=== PATIENT | male | born 1970 | race Caucasian/White ===

== ENCOUNTER 2016-08-12 13:34 | Emergency (ER) ==
[2016-08-12 13:44] VITALS: BP 136/90; TEMP 98.9; BMI 33.0
--- NOTE | 2016-08-12 15:10 | ED.PDOC ---
General ED Provider: Dr. LISA DELATORRE JR Chief Complaint: Tooth Problem Stated Complaint: Dental pain left upper. Teeth broken, carious. Made dental appt, but is for the end of the month. States pain is "unbearable" now.[End] 98.9 94 20 92% 136/90 9/10 Teeth broke off within the last year. Yesterday swelling started to left side of face. Swollen left side of face, redness and tenderness[End] left lateral upper incisor monocuspid and bicuspid eroded fractured oozing Time Seen by Physician: 15:08 Mode of Arrival: Walk-In Information Source: Patient Exam Limitations: No limitations Nursing and Triage Documentation Reviewed and Agree: No Review of Systems - Review Of Systems Constitutional: Reports: No symptoms Eyes: Reports: No symptoms Ears, Nose, Mouth, Throat: Reports: Mouth pain Respiratory: Reports: No symptoms Cardiac: Reports: No symptoms GI: Reports: No symptoms : Reports: No symptoms Musculoskeletal: Reports: No symptoms Skin: Reports: No symptoms Neurological: Reports: No symptoms Endocrine: Reports: No symptoms Hematologic/Lymphatic: Reports: No symptoms All Other Systems: Other Past Medical History - Past Medical History Endocrine: Reports: None Cardiovascular: Reports: Hypertension Respiratory: Reports: Asthma Hematological: Reports: None Gastrointestinal: Reports: None Genitourinary: Reports: None Neuro/Psych: Reports: Migraine Musculoskeletal: Reports: None Cancer: Reports: None - Surgical History General Surgical History: Reports: Other (fore skin), Unknown (FX PENIS ) - Family History Family History: Reports: Unknown - Social History Smoking Status: Current every day smoker, Heavy tobacco smoker Hx Substance Use: No Alcohol Screening: Occasionally Physical Exam - Physical Exam Appearance: Well-appearing Pain Distress: Moderate Eyes: NIKOLAI, EOMI, Conjunctiva clear ENT: Ears normal, Nose normal, Erythema (dental) Neck: Supple (no lad) Respiratory: Airway patent, Breath sounds clear, Breath sounds equal, Respirations nonlabored Cardiovascular: RRR, Pulses normal, No rub, No murmur GI/: Soft, Nontender, No masses, Bowel sounds normal, No Organomegaly Musculoskeletal: Normal strength, ROM intact, No edema, No calf tenderness Skin: Warm, Dry, Normal color Neurological: Sensation intact, Motor intact, Reflexes intact, Cranial nerves intact, Alert, Oriented Psychiatric: Affect appropriate, Mood appropriate Critical Care Note - Critical Care Note Total Time (mins): 0 Course - Course Vital Signs: Temp Pulse Resp BP Pulse Ox 08/12/16 13:36 98.9 F 94 H 20 136/90 92 L Departure - Departure Time of Disposition: 15:19 Disposition: HOME SELF-CARE Discharge Problem: Toothache Instructions: Dental Abscess (ED) Condition: Good Pt referred to PMD for follow-up: Yes Additional Instructions: follow up with dentist as soon as possible antibiotic until gone dental wax can seal area to stop pain from exposure to fluids and to air Prescriptions: Hydrocodone Bit/Acetaminophen [[place] 5-325] 1 - 2 tab PO Q6HR PRN #12 tablet PRN Reason: pain Penicillin V Potassium 500 mg PO QID #28 tablet Allergies/Adverse Reactions: Allergies NSAIDS (Non-Steroidal Anti-Inflamma Adverse Reaction (Verified 08/12/16 13:42) Home Medications: Ambulatory Orders Alprazolam [Xanax] 1 mg PO DIRECTED PRN 10/29/15 Lisinopril 10 mg PO DAILY 10/29/15 Hydrocodone Bit/Acetaminophen [[place] 5-325] 1 - 2 tab PO Q6HR PRN #12 tablet 09/27 Penicillin V Potassium 500 mg PO QID #28 tablet 08/12/16
[2016-08-12] MEDS ORDERED: DEMEROL 50 MG/ML SYRINGE IM STA (15:16)
[2016-08-12] MEDS ORDERED: PHENERGAN 25 MG/ML VIAL IM STA (15:16)
== END 2016-08-12 15:37 | disposition home or self-care (01) ==
LOC: ED 13:34
DX: K04.7 Periapical abscess without sinus (principal); K02.7 Dental root caries; S02.5XXA Fracture of tooth (traumatic), initial encounter for closed fracture; K08.89 Other specified disorders of teeth and supporting structures; F17.210 Nicotine dependence, cigarettes, uncomplicated
CPT/HCPCS: 96372; 99282

== ENCOUNTER 2016-08-18 13:20 | Emergency (ER) ==
[2016-08-18 13:27] VITALS: BP 137/98; TEMP 98.1; BMI 34.1
--- NOTE | 2016-08-18 13:49 | ED.PDOC ---
General ED Provider: Dr. LISA DELATORRE JR Chief Complaint: Tooth Problem Stated Complaint: "I have an abscessed tooth"--seen this er last week--has taken all antibiotics--states pain/swelling still present--has appt thurs with dentist-[End]upper teeth 98.1 76 16 98% 137/98 04/2008/12/16 15: 07Initialization : 08/12/16 : Tooth Problem: Dental pain left upper. Teeth broken, carious. Made dental appt, but is for the end of the month. "unbearable " now.[End] broke the last year. swelling left side of face. Swollen left side of face, redness and tenderness[End] left lateral upper incisor monocuspid and bicuspid eroded fractured oozing. : Dental Abscess (ED) [[place] 5-325] Penicillin V Potassium 500 mg PO QID Time Seen by Physician: 13:48 Mode of Arrival: Walk-In Information Source: Patient Exam Limitations: No limitations Nursing and Triage Documentation Reviewed and Agree: No Review of Systems - Review Of Systems Constitutional: Reports: Malaise Eyes: Reports: No symptoms Ears, Nose, Mouth, Throat: Reports: Ear pain, Mouth pain Respiratory: Reports: No symptoms Cardiac: Reports: No symptoms GI: Reports: No symptoms : Reports: No symptoms Musculoskeletal: Reports: No symptoms Skin: Reports: No symptoms Neurological: Reports: Other Endocrine: Reports: No symptoms Hematologic/Lymphatic: Reports: No symptoms All Other Systems: Other Past Medical History - Past Medical History Endocrine: Reports: None Cardiovascular: Reports: Hypertension Respiratory: Reports: Asthma Hematological: Reports: None Gastrointestinal: Reports: None Genitourinary: Reports: None Neuro/Psych: Reports: Migraine Musculoskeletal: Reports: None Cancer: Reports: None - Surgical History General Surgical History: Reports: Other (fore skin), Unknown (FX PENIS ) - Family History Family History: Reports: Unknown - Social History Smoking Status: Current every day smoker, Heavy tobacco smoker Hx Substance Use: No Alcohol Screening: Occasionally Physical Exam - Physical Exam Appearance: Ill-appearing Ill-appearing: Moderate Pain Distress: Moderate Eyes: NIKOLAI, EOMI, Conjunctiva clear ENT: Ears normal (tm retracted eaqc flushed not signs of otitis(ear pain with dental pain)), Nose normal, Oropharynx normal Respiratory: Airway patent, Breath sounds clear, Breath sounds equal, Respirations nonlabored Cardiovascular: RRR, Pulses normal, No rub, No murmur GI/: Soft, Nontender, No masses, Bowel sounds normal, No Organomegaly Musculoskeletal: Normal strength, ROM intact, No edema, No calf tenderness Skin: Warm, Dry, Normal color Neurological: Sensation intact, Motor intact, Reflexes intact, Cranial nerves intact, Alert, Oriented Psychiatric: Anxious Critical Care Note - Critical Care Note Total Time (mins): 0 Course - Course Vital Signs: Temp Pulse Resp BP Pulse Ox 08/18/16 13:20 98.1 F 76 16 137/98 H 98 Departure - Departure Time of Disposition: 14:04 Disposition: HOME SELF-CARE Discharge Problem: Toothache, Tooth abscess Instructions: Dental Abscess (ED), Toothache (ED) Condition: Stable Pt referred to PMD for follow-up: Yes (dentist) Additional Instructions: follow up with dentist as soon as possible- as scheduled antibiotic until gone-clindamycin dental wax Prescriptions: Clindamycin HCl 300 mg PO QID #40 capsule Hydrocodone/Acetaminophen [[place] 7.5-325 Tablet] 1 each PO QID PRN #20 tablet PRN Reason: Severe Pain Allergies/Adverse Reactions: Allergies NSAIDS (Non-Steroidal Anti-Inflamma Adverse Reaction (Verified 08/18/16 13:26) Home Medications: Ambulatory Orders Alprazolam [Xanax] 1 mg PO DIRECTED PRN 10/29/15 Lisinopril 10 mg PO DAILY 10/29/15 Penicillin V Potassium 500 mg PO QID #28 tablet 08/12/16 Clindamycin HCl 300 mg PO QID #40 capsule 08/18/16 Hydrocodone/Acetaminophen [[place] 7.5-325 Tablet] 1 each PO QID PRN #20 tablet
[2016-08-18] MEDS ORDERED: CLEOCIN PO STA (13:57)
== END 2016-08-18 14:15 | disposition home or self-care (01) ==
LOC: ED 13:20
DX: K04.7 Periapical abscess without sinus (principal); F17.210 Nicotine dependence, cigarettes, uncomplicated
CPT/HCPCS: 99282

== ENCOUNTER 2017-01-01 11:06 | Emergency (ER) ==
[2017-01-01 11:09] VITALS: BP 148/103; TEMP 98.7; BMI 33.7
[2017-01-01 11:46] LABS: BASOPHILS % (AUTO) 0.5 % (0.0-3.0); EOSINOPHILS # (AUTO) 0.1 K/ul (0.0-0.7); EOSINOPHILS % (AUTO) 0.8 % (0.0-7.0); HEMATOCRIT 46.4 % (42.0-52.0); HEMOGLOBIN 15.8 g/dl (14.0-18.0); IMMATURE GRANULOCYTE % (AUTO) 0.5 % (0.0-5.0); LYMPHOCYTES # (AUTO) 2.1 K/uL (0.60-3.4); LYMPHOCYTES % (AUTO) 28.4 (10.0-50.0); MEAN CORPUSCULAR HEMOGLOBIN 34.3 pg (27.0-31.0); MEAN CORPUSCULAR HGB CONC 34.1 (31.8-35.4); MEAN CORPUSCULAR VOLUME 100.9 fl (80.0-94.0); MONOCYTES # (AUTO) 0.5 K/uL (0.4-2.0); NEUTROPHILS # (AUTO) 4.8 K/ul (2.0-6.9); NEUTROPHILS % (AUTO) 63.8; PLATELET COUNT 288 10^3/uL (140-440); WHITE BLOOD COUNT 7.53 K/ul (4.2-10.2)
[2017-01-01 12:01] LABS: COCAIN SCREEN,URINE NEGATIVE (NEGATIVE)
[2017-01-01 12:08] LABS: ALBUMIN 4.4 g/dL (3.4-5.0); ALBUMIN/GLOBULIN RATIO 1.19; ANION GAP 18.3; BILIRUBIN,TOTAL 0.24 mg/dL (0.00-1.20); BUN/CREATININE RATIO 14.28; CALCIUM 9.3 mg/dL (8.2-10.2); CREATININE 0.84 mg/dL (0.60-1.10); POTASSIUM 4.3 mmol/L (3.5-5.1); TOTAL PROTEIN 8.1 g/dL (6.4-8.2)
--- NOTE | 2017-01-01 12:29 | CT ---
Exam: CT head without contrast. HISTORY: Headache with sensitivity to light. Procedures: 5 mm contiguous axial images were obtained through the skull without the use of contras t. Comparison: 03/23/2016. FINDINGS: There is mild prominence of the bilateral lateral ventricles and cerebral sulci.There is no intracranial hemorrhage, mass effect, hydrocephalus, extra-axial fluid collection or midline shif t. The ventricles and basal cisterns are patent. There is no evidence of acute large vessel infarc t. Bone windows demonstrate normal aeration of the mastoid air cells and the visualized portions of the paranasal sinuses. There is no acute fracture. IMPRESSION: No acute intracranial process. Findings were faxed to the emergency department at 12:15 p.m.
[2017-01-01] MEDS ORDERED: VALIUM SYRINGE IVP STA (12:43)
--- NOTE | 2017-01-01 12:50 | ED.PDOC ---
General ED Provider: Dr. DOROTHY PERES Chief Complaint: Headache Stated Complaint: headache Time Seen by Physician: 11:10 (no trauma) Mode of Arrival: Walk-In Information Source: Patient Exam Limitations: No limitations Nursing and Triage Documentation Reviewed and Agree: Yes Neurological Complaint Exam - Headache Complaint/Exam Onset: Gradual Duration: 1 day Symptoms Are: Still present Timing: Intermittent Episodes Lasting: Hours Initial Severity: Moderate Current Severity: Moderate Location: Frontal, Temporal Character: Reports: Throbbing Aggravating: Reports: Bright lights Alleviating: Reports: None, Rest Associated Signs and Symptoms: Reports: Nausea. Denies: Dizziness, Seizure, Vomiting, Sinus pressure, Fever, Neck pain, Neck stiffness, Decreased LOC, Visual changes Related History: Reports: Similar episode Related Surgical History: Reports: None SAH Risk Factors: Reports: Hypertension Meningitis Risk Factors: Reports: None SDH Risk Factors: Reports: Male Temporal Arteritis Risk Factors: Reports: Fundoscopic Exam: Present: Normal Findings Papilledema Present: No Temporal Artery Tenderness: Present: None Sinus Tenderness: Present: None TMJ Tenderness: Present: None Glascow Coma Scale (see protocol): 15 Meningeal Signs Positive: No ROM Limited In: No Limitiations Focal Weakness: Present: None Focal Sensory Loss: Present: None Gait: Normal Nystagmus Present: No Gag Reflex Present: Yes [id number]: Normal Findings Romberg Test Positive: No Babinski Sign: Negative Right, Negative Left Differential Diagnoses: Migraine Review of Systems - Review Of Systems Constitutional: Reports: No symptoms Eyes: Reports: No symptoms Ears, Nose, Mouth, Throat: Reports: No symptoms Respiratory: Reports: No symptoms Cardiac: Reports: No symptoms GI: Reports: No symptoms : Reports: No symptoms Musculoskeletal: Reports: No symptoms Skin: Reports: No symptoms Neurological: Reports: Headache Endocrine: Reports: No symptoms Hematologic/Lymphatic: Reports: No symptoms All Other Systems: Reviewed and Negative Past Medical History - Past Medical History Endocrine: Reports: None Cardiovascular: Reports: Hypertension Respiratory: Reports: Asthma Hematological: Reports: None Gastrointestinal: Reports: None Genitourinary: Reports: None Neuro/Psych: Reports: Migraine Musculoskeletal: Reports: None Cancer: Reports: None - Surgical History General Surgical History: Reports: Other (fore skin), Unknown (FX PENIS ) - Family History Family History: Reports: Unknown - Social History Smoking Status: Current every day smoker, Heavy tobacco smoker Hx Substance Use: No Alcohol Screening: Occasionally Physical Exam - Physical Exam Appearance: Well-appearing, No pain distress, Well-nourished Eyes: NIKOLAI, EOMI, Conjunctiva clear ENT: Ears normal, Nose normal, Oropharynx normal Respiratory: Airway patent, Breath sounds clear, Breath sounds equal, Respirations nonlabored Cardiovascular: RRR, Pulses normal, No rub, No murmur GI/: Soft, Nontender, No masses, Bowel sounds normal, No Organomegaly Musculoskeletal: Normal strength, ROM intact, No edema, No calf tenderness Skin: Warm, Dry, Normal color Neurological: Sensation intact, Motor intact, Reflexes intact, Cranial nerves intact, Alert, Oriented Psychiatric: Affect appropriate, Mood appropriate Interpretation - Radiology Interpretation Radiology Interpretation By: Radiologist Radiology Results: No acute changes Exam Interpreted: CT Scan Critical Care Note - Critical Care Note Total Time (mins): 0 Course - Course Hematology/Chemistry: 01/01/17 11:32 01/01/17 11:32 Orders, Labs, Meds: Lab Review 01/01/17 01/01/17 11:29 11:32 WBC 7.53 RBC 4.60 L Hgb 15.8 Hct 46.4 MCV 100.9 H MCH 34.3 H MCHC 34.1 RDW Coeff of Abebe 12.9 Plt Count 288 Immature Gran % (Auto) 0.5 Neut % (Auto) 63.8 Lymph % (Auto) 28.4 [place] % (Auto) 6.0 Eos % (Auto) 0.8 Baso % (Auto) 0.5 Immature Gran # (Auto) 0.0 Neut # 4.8 Lymph # 2.1 [place] # 0.5 Eos # 0.1 Baso # 0.0 Sodium 137 Potassium 4.3 Chloride 102 Carbon Dioxide 21 Anion Gap 18.3 BUN 12 Creatinine 0.84 Estimated GFR (MDRD) 98.00 BUN/Creatinine Ratio 14.28 Glucose 109 H Calcium 9.3 Total Bilirubin 0.24 AST 27 ALT 47 Alkaline Phosphatase 56 Total Protein 8.1 Albumin 4.4 Globulin 3.7 Albumin/Globulin Ratio 1.19 Urine Opiates Screen Negative Ur Oxycodone Screen Negative Urine Methadone Screen Negative Ur Propoxyphene Screen Negative Ur Barbiturates Screen Negative U Tricyclic Antidepress Negative Ur Phencyclidine Scrn Negative Ur Amphetamine Screen Negative U Methamphetamines Scrn Negative U Benzodiazepines Scrn Positive Urine Cocaine Screen Negative U Cannabinoids Screen Negative Plasma/Serum Alcohol 39.8 Orders Category Date Time Status BLOOD ALCOHOL Stat LAB 01/01/17 11:32 Completed CBC W/ AUTO DIFF Stat LAB 01/01/17 11:32 Completed COMPREHENSIVE METABOLIC PANEL Stat LAB 01/01/17 11:32 Completed URINE DRUG SCREEN (RAPID FOR ED) [DRUG SCREEN, URINE, LAB 01/01/17 11:29 Completed RAPID] Stat CT HEAD W/O CONTRAST Stat RADS 01/01/17 11:21 Completed Vital Signs: Temp Pulse Resp BP Pulse Ox 01/01/17 11:06 98.7 F 95 H 18 148/103 H 95 Departure - Departure Time of Disposition: 12:51 Disposition: HOME SELF-CARE Discharge Problem: Headache Instructions: Migraine Headache (ED), Acute Headache (ED), General Headache (ED ) Condition: Good Pt referred to PMD for follow-up: No Additional Instructions: Please call your Family Physician as soon as possible to schedule a follow-up appointment.please have AN MRI SOON POSSIBLE Prescriptions: Hydrocodone/Acetaminophen [[place] 10-325 Tablet] 1 each PO Q8HR #7 tablet Allergies/Adverse Reactions: Allergies NSAIDS (Non-Steroidal Anti-Inflamma Adverse Reaction (Verified 01/01/17 11:09) Home Medications: Ambulatory Orders Alprazolam [Xanax] 1 mg PO DIRECTED PRN 10/29/15 Lisinopril 10 mg PO DAILY 10/29/15 Hydrocodone/Acetaminophen [[place] 10-325 Tablet] 1 each PO Q8HR #7 tablet
[2017-01-01] MEDS ORDERED: ZOFRAN 4 MG/2 ML IM STA (12:52)
[2017-01-01] MEDS ORDERED: MORPHINE 4 MG/ML SYRINGE IM STA (12:52)
== END 2017-01-01 13:18 | disposition home or self-care (01) ==
LOC: ED 11:06
DX: G43.909 Migraine, unspecified, not intractable, without status migrainosus (principal); I10 Essential (primary) hypertension; F17.210 Nicotine dependence, cigarettes, uncomplicated
CPT/HCPCS: 36415; 80053; 80306; 80307; 85025; 96372; 99283

== ENCOUNTER 2017-07-24 09:33 | Emergency (ER) ==
[2017-07-24 09:39] VITALS: BP 162/99; TEMP 98.7; BMI 34.0
--- NOTE | 2017-07-24 09:55 | ED.PDOC ---
General ED Provider: Dr. JAMES STONE Chief Complaint: Back Pain Stated Complaint: Abdominal pain Time Seen by Physician: 09:53 Mode of Arrival: Walk-In Information Source: Patient, Family Exam Limitations: No limitations Primary Care Provider: ELO GONZALEZ Nursing and Triage Documentation Reviewed and Agree: Yes Review of Systems - Review Of Systems Constitutional: Reports: No symptoms Respiratory: Reports: No symptoms Musculoskeletal: Reports: Back pain (Chronic usual Right sided SI joint) Skin: Reports: No symptoms All Other Systems: Reviewed and Negative Past Medical History - Past Medical History Endocrine: Reports: None Cardiovascular: Reports: Hypertension Respiratory: Reports: Asthma Hematological: Reports: None Gastrointestinal: Reports: None Genitourinary: Reports: None Neuro/Psych: Reports: Migraine Musculoskeletal: Reports: None Cancer: Reports: None - Surgical History General Surgical History: Reports: Other (fore skin), Unknown (FX PENIS ) - Family History Family History: Reports: Unknown - Social History Smoking Status: Current every day smoker, Heavy tobacco smoker Hx Substance Use: No Alcohol Screening: Occasionally Physical Exam - Physical Exam Appearance: Well-appearing Pain Distress: Moderate Eyes: NIKOLAI, EOMI ENT: Oropharynx normal Neck: Supple Respiratory: Airway patent, Breath sounds clear Cardiovascular: RRR, Pulses normal GI/: Soft, Nontender Musculoskeletal: Normal strength, ROM intact Skin: Warm, Dry Neurological: Sensation intact, Motor intact, Alert, Oriented Psychiatric: Affect appropriate, Mood appropriate Interpretation - Radiology Interpretation Radiology Interpretation By: Radiologist Exam Interpreted: CT Scan (Abd Pelvis - mild diverticulosis) Re-Evaluation - Re-Evaluation Time of Re-Evaluation: 12:05 Status: Unchanged Vital Signs Stable: Yes Pain Level: States pain worsening Appearance: NAD Skin: Warm and Dry Neuro: Alert and Oriented X3 Additional Comments: Educated re Labs and CT results; pt aware of diverticulosis Critical Care Note - Critical Care Note Total Time (mins): 15 Course - Course Hematology/Chemistry: 07/24/17 11:00 07/24/17 11:00 Orders, Labs, Meds: Lab Review 07/24/17 07/24/17 07/24/17 09:50 11:00 11:00 WBC 7.54 RBC 4.06 L Hgb 14.1 Hct 41.1 L MCV 101.2 H MCH 34.7 H MCHC 34.3 RDW Coeff of [place] 12.8 Plt Count 241 Immature Gran % (Auto) 0.7 Neut % (Auto) 70.1 Lymph % (Auto) 21.0 [place] % (Auto) 6.8 Eos % (Auto) 0.9 Baso % (Auto) 0.5 Immature Gran # (Auto) 0.1 Neut # 5.3 Lymph # 1.6 [place] # 0.5 Eos # 0.1 Baso # 0.0 Sodium 136 Potassium 4.1 Chloride 104 Carbon Dioxide 22 Anion Gap 14.1 BUN 14 Creatinine 0.82 Estimated GFR (MDRD) 100.00 BUN/Creatinine Ratio 17.07 Glucose 114 H Calcium 8.7 Total Bilirubin 0.23 AST 20 ALT 28 Alkaline Phosphatase 68 Total Protein 7.1 Albumin 3.6 Globulin 3.5 Albumin/Globulin Ratio 1.03 Urine Color Yellow Urine Clarity Clear Urine pH 7.0 Ur Specific [place] 1.020 Urine Protein Trace Urine Glucose (UA) Negative Urine Ketones Trace Urine Blood Negative Urine Nitrite Negative Urine Bilirubin Negative Urine Urobilinogen 0.2 Ur Leukocyte Esterase Negative Ur Squamous Epith Cells Not present Urine Mucus 1+ Orders Category Date Time Status CBC W/ AUTO DIFF Stat LAB 07/24/17 11:00 Completed COMPREHENSIVE METABOLIC PANEL Stat LAB 07/24/17 11:00 Completed URINALYSIS C & S IF INDICATED Stat LAB 07/24/17 09:50 Completed Hydromorphone HCl [Dilaudid 1 mg/ml Syringe] MEDS 07/24/17 12:15 Discontinued 1 mg IVP ONCE STA Morphine Sulfate [Morphine 2 mg/ml Syringe] MEDS 07/24/17 10:01 Discontinued 2 mg IVP ONCE STA Ondansetron HCl/Pf [Zofran 4 mg/2 ml] MEDS 07/24/17 10:02 Discontinued 4 mg IVP ONCE STA Sodium Chloride 0.9% [Sodium Chloride] 1,000 ml MEDS 07/24/17 09:[address] ABDOMEN/PELVIS WO CONTRAST Stat RADS 07/24/17 10:52 Completed Medications Discontinued Medications Generic Name Dose Route Start Last Admin Trade Name Freq PRN Reason Stop Dose Admin Hydromorphone HCl 1 mg 07/24/17 12:15 07/24/17 13:02 Dilaudid 1 Mg/Ml Syringe IVP 07/24/17 12:16 1 mg ONCE STA Administration Sodium Chloride 1,000 mls @ 1,000 mls/hr 07/24/17 09:54 07/24/17 10:14 Sodium Chloride IV 07/24/17 10:53 1,000 mls/hr BOLUS STA Administration Morphine Sulfate 2 mg 07/24/17 10:01 07/24/17 10:31 Morphine 2 Mg/Ml Syringe IVP 07/24/17 10:02 Not Given ONCE STA Ondansetron HCl 4 mg 07/24/17 10:02 07/24/17 10:16 Zofran 4 Mg/2 Ml IVP 07/24/17 10:03 4 mg ONCE STA Administration Vital Signs: Temp Pulse Resp BP Pulse Ox 07/24/17 09:34 98.7 F 82 20 162/99 H 97 Departure - Departure Time of Disposition: 13:27 Disposition: HOME SELF-CARE Discharge Problem: Abdominal pain Qualifiers: Abdominal location: left lower quadrant Qualified Code(s): R10.32 - Left lower quadrant pain Instructions: Acute Abdominal Pain (ED) Condition: Stable Pt referred to PMD for follow-up: Yes (Call for appointment) Additional Instructions: Continue your usual pain medications; must see pain management for any changes in pain medicaitons. Follow up as needed with primary care. Allergies/Adverse Reactions: Allergies NSAIDS (Non-Steroidal Anti-Inflamma Adverse Reaction (Verified 07/24/17 09:41) Home Medications: Ambulatory Orders Alprazolam [Xanax] 1 mg PO DIRECTED PRN 10/29/15 Lisinopril 10 mg PO DAILY 10/29/15 Hydrocodone/Acetaminophen [[place] 10-325 Tablet] 1 each PO Q8HR #7 tablet Meloxicam [Mobic] 15 mg PO DAILY 07/24/17 Disposition Discussed With: Patient
[2017-07-24 10:10] LABS: BILIRUBIN,URINE Negative (NEGATIVE); KETONES,URINE Trace (NEGATIVE); LEUKOCYTE ESTERASE ,URINE Negative (NEGATIVE); NITRITE,URINE Negative (NEGATIVE); PROTEIN,URINE Trace (NEGATIVE); URINE, BLOOD Negative (NEGATIVE)
[2017-07-24] MEDS: SODIUM CHLORIDE 1,000 ML IV STA (10:14)
[2017-07-24] MEDS: ZOFRAN 4 MG/2 ML IVP STA (10:16)
[2017-07-24 10:21] LABS: ADD URINE MICROSCOPIC YES
[2017-07-24] MEDS: MORPHINE 2 MG/ML SYRINGE IVP STA (10:31)
[2017-07-24 11:04] LABS: BASOPHILS % (AUTO) 0.5 % (0.0-3.0); EOSINOPHILS # (AUTO) 0.1 K/ul (0.0-0.7); EOSINOPHILS % (AUTO) 0.9 % (0.0-7.0); HEMATOCRIT 41.1 % (42.0-52.0); HEMOGLOBIN 14.1 g/dl (14.0-18.0); IMMATURE GRANULOCYTE % (AUTO) 0.7 % (0.0-5.0); LYMPHOCYTES # (AUTO) 1.6 K/uL (0.60-3.4); MEAN CORPUSCULAR HEMOGLOBIN 34.7 pg (27.0-31.0); MEAN CORPUSCULAR HGB CONC 34.3 (31.8-35.4); MEAN CORPUSCULAR VOLUME 101.2 fl (80.0-94.0); MONOCYTES # (AUTO) 0.5 K/uL (0.4-2.0); MONOCYTES % (AUTO) 6.8 (0-10); NEUTROPHILS # (AUTO) 5.3 K/ul (2.0-6.9); NEUTROPHILS % (AUTO) 70.1; PLATELET COUNT 241 10^3/uL (140-440); RED BLOOD COUNT 4.06 10^6/ul (4.70-6.10); WHITE BLOOD COUNT 7.54 K/ul (4.2-10.2)
[2017-07-24 11:23] LABS: ALBUMIN 3.6 g/dL (3.4-5.0); ALBUMIN/GLOBULIN RATIO 1.03; ANION GAP 14.1; BILIRUBIN,TOTAL 0.23 mg/dL (0.00-1.20); BUN/CREATININE RATIO 17.07; CALCIUM 8.7 mg/dL (8.2-10.2); CREATININE 0.82 mg/dL (0.60-1.10); POTASSIUM 4.1 mmol/L (3.5-5.1); TOTAL PROTEIN 7.1 g/dL (6.4-8.2)
--- NOTE | 2017-07-24 11:50 | CT ---
EXAM: CT Abdomen without contrast. CT Pelvis without contrast. HISTORY: Generalized abdominal pain. COMPARISON: None available. TECHNIQUE: Multiple axial images of the abdomen and pelvis were obtained without intravenous contras t. Images were reformatted in the coronal plane. FINDINGS: Please note that evaluation of the abdominal and pelvic structures is limited due to lack of intravenous contrast. Calcified granuloma noted in the right lower lobe. No acute osseous abnormality identified. There i s partial ankylosis across the sacroiliac joints. Degenerative changes present in the spine. The liver is enlarged and low density. The gallbladder, pancreas, spleen, and adrenal glands demonst rate normal contour. No calcified renal stones or hydronephrosis detected. The bowel is normal in course and caliber without evidence for obstruction or inflammatory process. The appendix is normal. Mild colonic diverticulosis noted. Nonenlarged mesenteric and retroperitone al lymph nodes are identified. No free fluid or free air is seen. The bladder is unremarkable. Pro static calcifications noted. Atherosclerotic calcifications are present. IMPRESSION: 1. No acute abnormality within the abdomen or pelvis. 2. Hepatomegaly with fatty infiltration. 3. Mild diverticulosis.
[2017-07-24] MEDS: DILAUDID 1 MG/ML SYRINGE IVP STA (13:02)
== END 2017-07-24 13:34 | disposition home or self-care (01) ==
LOC: ED 09:33
DX: R10.32 Left lower quadrant pain (principal); I10 Essential (primary) hypertension; F17.210 Nicotine dependence, cigarettes, uncomplicated
CPT/HCPCS: 36415; 80053; 81001; 85025; 96360; 96361; 96374; 96375; 99283

== ENCOUNTER 2020-11-23 21:39 | Observation (INO) ==
[2020-11-23] MEDS ORDERED: PROTONIX IV IVP STA (22:01)
[2020-11-23] MEDS ORDERED: MORPHINE 4 MG/ML SYRINGE IVP STA (22:01)
[2020-11-23] MEDS ORDERED: ZOFRAN 4 MG/2 ML IVP STA (22:01)
[2020-11-23] MEDS ORDERED: SODIUM CHLORIDE 1,000 ML IV STA (22:01)
[2020-11-23] MEDS ORDERED: DILAUDID 1 MG/ML SYRINGE IVP STA ×2 (22:01→23:18)
--- NOTE | 2020-11-23 22:10 | ED.PDOC ---
General ED Provider: Dr. VAIBHAV ELIZABETH Chief Complaint: Abdominal Pain Stated Complaint: COMES TO THE ER WITH DIFFUSE ABDOMINAL PAIN UNLIKE PRIOR PANCRATITIS HE HAD LAST YEAR THE PAIN DOES NOT GO TO THE BACK BUT RATES IT 7/10 AND FEELS BLOTTED. HAS HAD CHOLECYSTECTOMY DUE TO GALL STONES AND WAS THE CAUSE OF HIS PANCRATITIS LAST JUNE. HAS RUN OUT OF HIS PAIN MEDICATIONS. Time Seen by Provider: 11/23/20 21:58 Information Source: Patient Nursing and Triage Documentation Reviewed and Agree: Yes Does patient meet sepsis criteria?: No System Inflammatory Response Syndrome: Not Applicable Sepsis Protocol: For patient's 13 years and over: Temp is 96.8 and below OR 101 and greater Pulse >90 BPM Resp >20/minute Acutely Altered Mental Status Are patient's symptoms suggestive of a new infection, such as: -Pneumonia -Skin, Soft Tissue -Endocarditis -UTI -Bone, Joint Infection -Implantable Device -Acute Abdominal Infection -Wound Infection -Meningitis -Blood Stream Catheter Infection -Unknown GI Complaint Exam Abdominal Pain Complaint/Exam Onset: Gradual Duration: 1 DAY Symptoms Are: Still present Timing: Constant Initial Severity: Severe Current Severity: Severe Location of Pain: Diffuse Radiates To: Reports Chest Character: Reports Dull, Aching and Throbbing Associated Signs and Symptoms: Reports Decreased appetite, Nausea and Vomiting AAA Risk Factors: Reports None Cardiac Risk Factors: Reports None Testicular Torsion Risk Factors: Reports None Surgical Obstruction Risk Factors: Reports None Related Surgical History: Reports None Abdominal Findings: Present Abdominal distention Differential Diagnoses: Appendicitis, Pancreatitis and UTI Review of Systems Review Of Systems Constitutional: Reports No symptoms Eyes: Reports No symptoms Ears, Nose, Mouth, Throat: Reports No symptoms Respiratory: Reports No symptoms Cardiac: Reports No symptoms GI: Reports Abdominal pain, Nausea and Vomiting : Reports No symptoms Musculoskeletal: Reports No symptoms Skin: Reports No symptoms Neurological: Reports Anxiety Endocrine: Reports No symptoms Hematologic/Lymphatic: Reports No symptoms All Other Systems: Reviewed and Negative Physical Exam Physical Exam Appearance: Reports Ill-appearing Ill-appearing: Moderate Pain Distress: Severe Eyes: Reports Conjunctiva clear ENT: Reports Oropharynx normal Respiratory: Reports Airway patent and Breath sounds clear Cardiovascular: Reports Tachycardia GI/: Reports Tender and Other (DISTENDED. ) Musculoskeletal: Reports Normal strength and ROM intact Skin: Reports Warm and Dry Neurological: Reports Sensation intact and Motor intact Psychiatric: Reports Anxious Interpretation Radiology Interpretation Radiology Interpretation By: Radiologist Radiology Results: Positive ( There is minimal peripancreatic edema and inflammatory stranding, consistent with acute pancreatitis.) Exam Interpreted: CT Scan Critical Care Note Critical Care Note Total Critical Care Time (mins): 40 Course Course Hematology/Chemistry: 11/23/20 22:12 11/23/20 22:12 Orders, Labs, Meds: Lab Review 11/23/20 11/23/20 11/23/20 22:12 22:12 23:24 WBC 12.67 H RBC 3.96 L Hgb 14.8 Hct 40.3 L MCV 101.8 H MCH 37.4 H MCHC 36.7 H RDW Coeff of Abebe 13.6 Plt Count 233 Immature Gran % (Auto) 0.4 Neut % (Auto) 80.9 H Lymph % (Auto) 12.8 Carbon % (Auto) 5.1 Eos % (Auto) 0.3 Baso % (Auto) 0.5 Neut # (Auto) 10.3 H Lymph # (Auto) 1.6 Carbon # (Auto) 0.7 Eos # (Auto) 0.0 Baso # (Auto) 0.1 Immature Gran # (Auto) 0.1 Sodium 132.1 L Potassium 3.28 L Chloride 96.3 L Carbon Dioxide 25.9 Anion Gap 13.18 BUN 9.0 Creatinine 0.53 L Estimated GFR (MDRD) 163.00 BUN/Creatinine Ratio 16.98 Glucose 142.8 H Calcium 8.84 Total Bilirubin 2.03 H AST 197.4 H ALT 120.3 H Alkaline Phosphatase 223.0 H Total Protein 7.70 Albumin 3.73 Globulin 3.97 Albumin/Globulin Ratio 0.93 Amylase 87.0 Lipase 440.6 H Urine Color Yellow Urine Clarity Clear Urine pH 7.0 Ur Specific [place] 1.020 Urine Protein Negative Urine Glucose (UA) Negative Urine Ketones Negative Urine Blood Negative Urine Nitrite Negative Urine Bilirubin Negative Urine Urobilinogen 1.0 H Ur Leukocyte Esterase Negative Orders Category Date Time Status PLACE [facility] (MONITORED BED ADMISSION 11/24/20 01:46 Ordered ) ACTIVITY .Up ad [place] CARE 11/24/20 01:42 Ordered GIVE HS SNACK 2100 CARE 11/24/20 01:42 Ordered INTAKE & OUTPUT Q8HR CARE 11/24/20 01:42 Ordered TELEMETRY MONITORING TELE CARE 11/24/20 01:46 Ordered VITAL SIGNS Q4HR CARE 11/24/20 01:42 Ordered CLEAR LIQUID DIET DIETARY 11/24/20 Breakfast Ordered HS SNACK DIETARY 11/24/20 Dinner Ordered ED IV/MEDIPORT/POWERPORT .ONCE EMERGENCY 11/23/20 22:01 Active AMYLASE Stat LAB 11/23/20 22:12 Completed CBC W/ AUTO DIFF DAILY@0600 LAB 11/24/20 06:00 Ordered CBC W/ AUTO DIFF DAILY@0600 LAB 11/25/20 06:00 Ordered CBC W/ AUTO DIFF Stat LAB 11/23/20 22:12 Completed COMPREHENSIVE METABOLIC PANEL DAILY@0600 LAB 11/24/20 06:00 Ordered COMPREHENSIVE METABOLIC PANEL DAILY@0600 LAB 11/25/20 06:00 Ordered COMPREHENSIVE METABOLIC PANEL Stat LAB 11/23/20 22:12 Completed LIPASE Stat LAB 11/23/20 22:12 Completed URINALYSIS C & S IF INDICATED Stat LAB 11/23/20 23:24 Completed 0.9 % Sodium Chloride [Saline Flush] MEDS 11/23/20 22:01 Active 1 syr IVF PRN PRN Enoxaparin Sodium [Lovenox] MEDS 11/24/20 09:00 Ordered 40 mg SUBCUT DAILY Hydromorphone HCl [Dilaudid 1 mg/ml Syringe] MEDS 11/23/20 22:01 Discontinued 1 mg IVP ONCE STA Hydromorphone HCl [Dilaudid 1 mg/ml Syringe] MEDS 11/23/20 23:18 Discontinued 1 mg IVP ONCE STA Hydromorphone HCl [Dilaudid 1 mg/ml Syringe] MEDS 11/24/20 01:41 Ordered 1 mg IVP Q4HR PRN Morphine Sulfate [Morphine 4 mg/ml Syringe] MEDS 11/23/20 22:01 Discontinued 4 mg IVP ONCE STA Ondansetron HCl/Pf [Zofran 4 mg/2 ml] MEDS 11/23/20 22:01 Discontinued 4 mg IVP ONCE STA Ondansetron HCl/Pf [Zofran 4 mg/2 ml] MEDS 11/24/20 01:41 Ordered 4 mg IVP Q6H PRN Pantoprazole Sodium [Protonix IV] MEDS 11/24/20 09:00 Ordered 40 mg IVP DAILY Pantoprazole Sodium [Protonix IV] MEDS 11/23/20 22:01 Discontinued 40 mg IVP ONCE STA Sodium Chloride 0.9% [Sodium Chloride] 1,000 ml MEDS 11/24/20 02:00 Ordered IV 150 mls/hr Sodium Chloride 0.9% [Sodium Chloride] 1,000 ml MEDS 11/23/20 22:01 Discontinued IV BOLUS RESUSCITATION STATUS Routine OTHERS 11/24/20 01:[address] ABD/PEL WO RENAL STONE PROT Stat RADS 11/24/20 00:34 Completed Medications Generic Name Dose Route Start Last Admin Trade Name Libby PRN Reason Stop Dose Admin Enoxaparin Sodium 40 mg 11/24/20 09:00 Enoxaparin Sodium 40 Mg/0.4 Ml Syr SUBCUT DAILY LAYLA Hydromorphone HCl 1 mg 11/24/20 01:41 Hydromorphone Hcl 1 Mg/Ml Syringe IVP Q4HR PRN Severe Pain Sodium Chloride 1,000 mls @ 150 mls/hr 11/24/20 02:00 Sodium Chloride IV .Q6H40M LAYLA Ondansetron HCl 4 mg 11/24/20 01:41 Ondansetron Hcl/Pf 4 Mg/2 Ml Sdv IVP Q6H PRN NAUSEA AND VOMITING Pantoprazole Sodium 40 mg 11/24/20 09:00 Pantoprazole Sodium 40 Mg Vial IVP DAILY LAYLA Sodium Chloride 1 syr 11/23/20 22:01 11/23/20 23:22 0.9% Sodium Chloride 10 Ml Disp.Syrin IVF 1 syr PRN PRN Administration To flush IV Discontinued Medications Generic Name Dose Route Start Last Admin Trade Name Libby PRN Reason Stop Dose Admin Hydromorphone HCl 1 mg 11/23/20 22:01 11/23/20 22:55 Hydromorphone Hcl 1 Mg/Ml Syringe IVP 11/23/20 22:02 Not Given ONCE STA Hydromorphone HCl 1 mg 11/23/20 23:18 11/23/20 23:22 Hydromorphone Hcl 1 Mg/Ml Syringe IVP 11/23/20 23:19 1 mg ONCE STA Administration Sodium Chloride 1,000 mls @ 1,000 mls/hr 11/23/20 22:01 11/23/20 22:29 Sodium Chloride IV 11/23/20 23:00 1,000 mls/hr BOLUS STA Administration Morphine Sulfate 4 mg 11/23/20 22:01 11/23/20 22:27 Morphine Sulfate 4 Mg/Ml Syringe IVP 11/23/20 22:02 4 mg ONCE STA Administration Ondansetron HCl 4 mg 11/23/20 22:01 11/23/20 22:27 Ondansetron Hcl/Pf 4 Mg/2 Ml Sdv IVP 11/23/20 22:02 4 mg ONCE STA Administration Pantoprazole Sodium 40 mg 11/23/20 22:01 11/23/20 22:28 Pantoprazole Sodium 40 Mg Vial IVP 11/23/20 22:02 40 mg ONCE STA Administration Vital Signs: Temp Pulse Resp BP Pulse Ox 11/23/20 21:40 99.8 F H 118 H 20 148/89 H 98 Discharge Plan Discharge Patient Disposition: PLACED OBSERVATION Discharge Problem: Acute pancreatitis Prescriptions: No Action pantoprazole [Protonix] 20 mg Tablet,Delayed Release (Dr/Ec) 20 mg PO DAILY RF: 0 albuterol sulfate 90 mcg/actuation Hfa Aerosol Inhaler 2 puff INHALATION QID PRN (Reason: short of air) RF: 0 lisinopril-hydrochlorothiazide 10-12.5 mg Tablet 1 tab PO DAILY RF: 0 acetaminophen [Tylenol Extra Strength] 500 mg Tablet 1,000 mg PO Q8H PRN (Reason: Pain) RF: 0 acetaminophen [Tylenol] 325 mg capsule 650 mg PO Q8HR PRN (Reason: pain) Qty: 20 RF: 0 ED Provider: VAIBHAV ELIZABETH Condition: Fair Physician Progress Note: []
[2020-11-23 22:18] LABS: BASOPHILS # (AUTO) 0.1 K/uL (0-0.2); BASOPHILS % (AUTO) 0.5 % (0.0-3.0); EOSINOPHILS % (AUTO) 0.3 % (0.0-7.0); HEMATOCRIT 40.3 % (42.0-52.0); HEMOGLOBIN 14.8 g/dl (14.0-18.0); IMMATURE GRANULOCYTE # (AUTO) 0.1 (0.0-1.0); IMMATURE GRANULOCYTE % (AUTO) 0.4 % (0.0-5.0); LYMPHOCYTES # (AUTO) 1.6 K/uL (0.60-3.4); LYMPHOCYTES % (AUTO) 12.8 (10.0-50.0); MEAN CORPUSCULAR HEMOGLOBIN 37.4 pg (27.0-31.0); MEAN CORPUSCULAR HGB CONC 36.7 (31.8-35.4); MEAN CORPUSCULAR VOLUME 101.8 fl (80.0-94.0); MONOCYTES # (AUTO) 0.7 K/uL (0.4-2.0); MONOCYTES % (AUTO) 5.1 (0-10); NEUTROPHILS # (AUTO) 10.3 K/ul (2.0-6.9); NEUTROPHILS % (AUTO) 80.9 % (42.2-75.2); PLATELET COUNT 233 10^3/uL (140-440); RDW COEFFICIENT OF VARIATION 13.6 % (11.6-14.8); RED BLOOD COUNT 3.96 10^6/ul (4.70-6.10); WHITE BLOOD COUNT 12.67 K/ul (4.2-10.2)
[2020-11-23 22:29] LABS: ALANINE AMINOTRANSFERASE 120.3 U/L (0-50); ALBUMIN 3.73 g/dL (3.5-5.0); ASPARTATE AMINO TRANSFERASE 197.4 U/L (17-59); BILIRUBIN,TOTAL 2.03 mg/dL (0.2-1.3); CALCIUM 8.84 mg/dL (8.4-10.2); CARBON DIOXIDE 25.9 mmol/L (22-30.0); CHLORIDE 96.3 mmol/L (98-107); CREATININE 0.53 mg/dL (0.60-1.10); GLUCOSE 142.8 mg/dL (74-106); LIPASE 440.6 U/L (23-300); POTASSIUM 3.28 mmol/L (3.5-5.1); SODIUM 132.1 mmol/L (134.5-145); TOTAL PROTEIN 7.7 g/dL (6.3-8.2)
[2020-11-23 23:35] LABS: BILIRUBIN,URINE Negative (NEGATIVE); CLARITY,URINE Clear (CLEAR); COLOR,URINE Yellow (YELLOW); GLUCOSE, URINE (UA) Negative (NEGATIVE); KETONES,URINE Negative (NEGATIVE); LEUKOCYTE ESTERASE ,URINE Negative (NEGATIVE); NITRITE,URINE Negative (NEGATIVE); PROTEIN,URINE Negative (NEGATIVE); URINE, BLOOD Negative (NEGATIVE)
--- NOTE | 2020-11-24 01:21 | CT ---
EXAM: CT of the abdomen and pelvis without contrast. HISTORY: Diffuse abdominal pain and distension. PROCEDURE: Contiguous axial CT images of the abdomen and pelvis without contrast with coronal and sa gittal reformats. All CT scans are performed using dose optimization techniques as appropriate to a performed exam including the following: Automated exposure control, Adjustment of the mA and/or kV ac cording to patient size, Use of iterative reconstruction technique. FINDINGS: There is diffuse fatty infiltration of the liver. The gallbladder is surgically absent. T here is minimal peripancreatic edema and inflammatory stranding, consistent with acute pancreatitis. The spleen, adrenal glands and kidneys are normal in appearance. The abdominal aorta is within norm al limits in size. The appendix is normal in appearance. There is diverticulosis of the colon with no evidence of diverticulitis. No free fluid or free air in the abdomen or pelvis. The bladder is a dequately filled and normal in appearance. The seminal vesicles and prostate gland are unremarkable. There are degenerative changes in the spine. Impression: Acute pancreatitis as described. Colonic diverticulosis without diverticulitis. Diffuse fatty infiltration of the liver. Cholecystectomy. All CT scans are performed using dose optimization techniques as appropriate to the performed exam an d include at least one of the following: Automated exposure control, adjustment of the mA and/or kV according t o size, and the use of iterative reconstruction technique.
[2020-11-24 02:00] LABS: BORDETELLA PARAPERTUSSIS (PCR) NOT DETECTED (NOT DETECT); BORDETELLA PERTUSSIS (PCR) NOT DETECTED (NOT DETECT); CHLAMYDIA PNEUMONIAE (PCR) NOT DETECTED (NOT DETECT); CORONAVIRUS 229E (PCR) NOT DETECTED (NOT DETECT); CORONAVIRUS HKU1 (PCR) NOT DETECTED (NOT DETECT); CORONAVIRUS NL63 (PCR) NOT DETECTED (NOT DETECT); CORONAVIRUS OC43 (PCR) NOT DETECTED (NOT DETECT); HUMAN METAPNEUMOVIRUS (PCR) NOT DETECTED (NOT DETECT); HUMAN RHINOVIRUS/ENTEROV (PCR) NOT DETECTED (NOT DETECT); INFLUENZA B (PCR) NOT DETECTED (NOT DETECT); MYCOPLASMA PNEUMONIAE (PCR) NOT DETECTED (NOT DETECT); PARAINFLUENZA VIRUS 1 (PCR) NOT DETECTED (NOT DETECT); PARAINFLUENZA VIRUS 2 (PCR) NOT DETECTED (NOT DETECT); PARAINFLUENZA VIRUS 3 (PCR) NOT DETECTED (NOT DETECT); PARAINFLUENZA VIRUS 4 (PCR) NOT DETECTED (NOT DETECT); RESPIRATORY SYNCYTIAL V (PCR) NOT DETECTED (NOT DETECT); SARS_COV_2 (PCR) NOT DETECTED (NOT DETECT)
[2020-11-24] MEDS: SODIUM CHLORIDE 1,000 ML IV SCH ×4 (02:34→23:46)
[2020-11-24 02:46] LABS: ADENOVIRUS (PCR) NOT DETECTED (NOT DETECT)
[2020-11-24 03:41] VITALS: BMI 28.9
[2020-11-24] MEDS: DILAUDID 1 MG/ML SYRINGE IVP PRN ×5 (04:23→20:48)
[2020-11-24] MEDS: ZOFRAN 4 MG/2 ML IVP PRN ×3 (04:24→20:48)
[2020-11-24 05:19] LABS: BASOPHILS % (AUTO) 0.3 % (0.0-3.0); EOSINOPHILS % (AUTO) 0.1 % (0.0-7.0); HEMATOCRIT 38.5 % (42.0-52.0); HEMOGLOBIN 13.8 g/dl (14.0-18.0); IMMATURE GRANULOCYTE # (AUTO) 0.1 (0.0-1.0); IMMATURE GRANULOCYTE % (AUTO) 0.4 % (0.0-5.0); LYMPHOCYTES # (AUTO) 1.2 K/uL (0.60-3.4); LYMPHOCYTES % (AUTO) 8.2 (10.0-50.0); MEAN CORPUSCULAR HEMOGLOBIN 36.7 pg (27.0-31.0); MEAN CORPUSCULAR HGB CONC 35.8 (31.8-35.4); MEAN CORPUSCULAR VOLUME 102.4 fl (80.0-94.0); MONOCYTES # (AUTO) 0.9 K/uL (0.4-2.0); NEUTROPHILS # (AUTO) 12.1 K/ul (2.0-6.9); PLATELET COUNT 201 10^3/uL (140-440); RDW COEFFICIENT OF VARIATION 13.7 % (11.6-14.8); RED BLOOD COUNT 3.76 10^6/ul (4.70-6.10); WHITE BLOOD COUNT 14.19 K/ul (4.2-10.2)
[2020-11-24 05:35] LABS: ALBUMIN 3.45 g/dL (3.5-5.0); ALKALINE PHOSPHATASE 215.5 U/L (38-126); ASPARTATE AMINO TRANSFERASE 234.7 U/L (17-59); BILIRUBIN,TOTAL 3.14 mg/dL (0.2-1.3); BLOOD UREA NITROGEN 8.2 mg/dL (9-20); CALCIUM 8.38 mg/dL (8.4-10.2); CARBON DIOXIDE 24.4 mmol/L (22-30.0); CHLORIDE 98.7 mmol/L (98-107); CREATININE 0.54 mg/dL (0.60-1.10); POTASSIUM 3.32 mmol/L (3.5-5.1); SODIUM 131.6 mmol/L (134.5-145); TOTAL PROTEIN 7.18 g/dL (6.3-8.2)
[2020-11-24] MEDS: PROTONIX IV IVP SCH (08:45)
[2020-11-24] MEDS: HYDROCHLOROTHIAZIDE PO SCH (08:49)
[2020-11-24] MEDS: ZESTRIL PO SCH (08:50)
[2020-11-24] MEDS: LOVENOX SUBCUT SCH (08:50)
--- NOTE | 2020-11-24 12:41 | PCM ---
Chief Complaint Chief Complaint: Patient is a 50 year old male who was admitted to the ER last night for acute abdominal pain with a diagnosis of Mild pancreatitis also evident on Imaging . He was give Dilaudid for pain Nausea medication and fluids. He states that he felt better but still nauseated. Review of Systems Constitutional: Reports Loss of appetite; Denies No symptoms, Fever, Chills, Weakness, Sweats, Fatigue and Other Eyes: Denies No symptoms, Blurred vision, Double-vision, Discharge, Itching, Pain, Redness, Photophobia and Other Ears: Denies No symptoms, Pain, Bleeding, Drainage, Ringing, Hearing loss and Other Nose: Denies No symptoms, Bleeding, Congestion, Discharge and Other Throat: Denies No symptoms, Pain, Swelling, Voice change and Other Mouth: Denies No symptoms, Bleeding, Pain, Swelling and Other Respiratory: Denies No symptoms, Cough, Shortness of air, Wheeze, Hemoptysis, Pain with breathing and Other Cardiovascular: Denies No symptoms, Chest pain, Left arm pain, Diaphoresis, PND, Orthopnea, Edema, Palpitations, Syncope and Other Gastrointestinal: Reports Abdominal pain, Nausea and Vomiting; Denies No symptoms, Diarrhea, Melena, Hematemesis, Hematochezia, Dysphagia, Constipation and Other Genitourinary: Denies No symptoms, dysuria, hematuria, frequency, incontinence, flank pain, penile discharge, testicular pain, testicular swelling and other Neurological: Denies No symptoms, Headache, Dizziness, Seizure, Numbness, Weakness, Speech difficulty, Problems with walking, Tremor, Fainting and Other Musculoskeletal: Denies No symptoms, Pain, Swelling in joints and Other Skin: Denies No symptoms, Rash, Pruritus, Lacerations, Wounds, Bruising and Other Immunology: Denies No symptoms, Hives, Itching, Frequent infections, Difficulty healing and Other Hematology: Denies No symptoms, Easy bruising, Easy bleeding, Swollen glands and Other Endocrine: Denies No symptoms, Weight changes, Cold intolerance, Heat intolerance, Excessive thirst, Excessive hunger, Polyuria and Other Psychiatric: Reports Anxiety Habits: Denies Tobacco use, Substance use, Alcohol use and Other Allergies Allergies Allergy/AdvReac Type Severity Reaction Status Date / Time NSAIDS (Non-Steroidal AdvReac Severe Difficulty Verified 11/15/20 21:42 Anti-Inflamma Swallowing [facility] Medical History Asthma Hypertension Surgical History (Updated 11/24/20 @ 04:05 by JERROD PRICE RN) History of cholecystectomy History of nasal surgery Family History (Updated 11/24/20 @ 04:05 by JERROD PRICE RN) FATHER Diabetes Social History (Updated 11/24/20 @ 04:14 by JERROD PRICE RN) Smoking and tobacco status: Current every day smoker Tobacco type: cigarettes Smoking packs per day: 1 Smoking cigarettes per day: 20.0 Years smoked: 30 Smoking pack-years: 30.00 Tobacco: How many years used: 30 Quit status: not considering quitting Alcohol intake: current Alcohol intake frequency: a few times a week Alcohol type: wine Medications Medications: Medications Generic Name Dose Route Start Last Admin Trade Name Freq PRN Reason Stop Dose Admin Enoxaparin Sodium 40 mg 11/24/20 09:00 11/24/20 08:50 Enoxaparin Sodium 40 Mg/0.4 Ml Syr SUBCUT 40 mg DAILY LAYLA Administration Hydrochlorothiazide 12.5 mg 11/24/20 09:00 11/24/20 08:49 Hydrochlorothiazide 25 Mg Tablet PO 12.5 mg DAILY LAYLA Administration Hydromorphone HCl 1 mg 11/24/20 01:41 11/24/20 12:31 Hydromorphone Hcl 1 Mg/Ml Syringe IVP 1 mg Q4HR PRN Administration Severe Pain Sodium Chloride 1,000 mls @ 150 mls/hr 11/24/20 02:00 11/24/20 09:03 Sodium Chloride IV 150 mls/hr .Q6H40M LAYLA Administration Lisinopril 10 mg 11/24/20 09:00 11/24/20 08:50 Lisinopril 10 Mg Tablet PO 10 mg DAILY LAYLA Administration Ondansetron HCl 4 mg 11/24/20 01:41 11/24/20 12:29 Ondansetron Hcl/Pf 4 Mg/2 Ml Sdv IVP 4 mg Q6H PRN Administration NAUSEA AND VOMITING Pantoprazole Sodium 40 mg 11/24/20 09:00 11/24/20 08:45 Pantoprazole Sodium 40 Mg Vial IVP 40 mg DAILY LAYLA Administration Sodium Chloride 1 syr 11/23/20 22:01 11/23/20 23:22 0.9% Sodium Chloride 10 Ml Disp.Syrin IVF 1 syr PRN PRN Administration To flush IV Body Composition Height: 5 ft 11 in Weight: 94.2 kg Body Mass Index (BMI): 28.9 Vital Signs Temperature: 98.0 F Pulse Rate: 115 Respiratory Rate: 20 Blood Pressure: 149/88 O2 Sat by Pulse Oximetry: 96 Physical Examination Appearance: Reports Ill-appearing Ill-appearing: Mild Pain Distress: Severe Eyes: Denies NIKOLAI, EOMI, Conjunctiva clear, Conjunctiva inflammed, Conjunctiva pale, Right pupil size, Left pupil size and Other ENT: Denies Ears normal, Nose normal, Oropharynx normal, TMs Occluded, Rhinorrhea, Epistaxis, Erythema, Exudate, Dry mucosa and Other Respiratory: Denies Airway patent, Breath sounds clear, Breath sounds equal, Breath sounds diminished, Respirations nonlabored, Airway obstructed, Crackles, Rhonchi, Wheezes, Retractions and Other Cardiovascular: Reports Tachycardia; Denies RRR, Pulses normal, No rub, No murmur, Irregular rhythm, Bradycardia, Abnormal pulses, Murmur and Other GI/: Reports Bowel sounds normal and Tender Musculoskeletal: Denies Normal strength, ROM intact, No edema, No calf tenderness, Limited ROM, Limited strength, Edema, Calf tenderness and Other Skin: Denies Warm, Dry, Normal color, Pale, Diaphoretic, Cyanotic and Other Neurological: Denies Sensation intact, Motor intact, Reflexes intact, Cranial nerves intact, Alert, Oriented, Disoriented, Alert to verbal, Alert to pain, Unresponsive, Abnormal reflexes, Focal Deficit, CN Palsy and Other Psychiatric: Reports Anxious Lab/Tests/Diagnostic Imaging Lab/Tests/Diagnostic Imaging: Lab Review 11/23/20 11/23/20 11/23/20 22:12 22:12 23:24 WBC 12.67 H RBC 3.96 L Hgb 14.8 Hct 40.3 L MCV 101.8 H MCH 37.4 H MCHC 36.7 H RDW Coeff of Abebe 13.6 Plt Count 233 Immature Gran % (Auto) 0.4 Neut % (Auto) 80.9 H Lymph % (Auto) 12.8 [place] % (Auto) 5.1 Eos % (Auto) 0.3 Baso % (Auto) 0.5 Neut # (Auto) 10.3 H Lymph # (Auto) 1.6 [place] # (Auto) 0.7 Eos # (Auto) 0.0 Baso # (Auto) 0.1 Immature Gran # (Auto) 0.1 Sodium 132.1 L Potassium 3.28 L Chloride 96.3 L Carbon Dioxide 25.9 Anion Gap 13.18 BUN 9.0 Creatinine 0.53 L Estimated GFR (MDRD) 163.00 BUN/Creatinine Ratio 16.98 Glucose 142.8 H Calcium 8.84 Total Bilirubin 2.03 H AST 197.4 H ALT 120.3 H Alkaline Phosphatase 223.0 H Total Protein 7.70 Albumin 3.73 Globulin 3.97 Albumin/Globulin Ratio 0.93 Amylase 87.0 Lipase 440.6 H Urine Color Yellow Urine Clarity Clear Urine pH 7.0 Ur Specific Webb 1.020 Urine Protein Negative Urine Glucose (UA) Negative Urine Ketones Negative Urine Blood Negative Urine Nitrite Negative Urine Bilirubin Negative Urine Urobilinogen 1.0 H Ur Leukocyte Esterase Negative Adenovirus (PCR) B. pertussis DNA (PCR) B.parapertussis DNA PCR C. pneumoniae DNA (PCR) Coronavirus OC43 (PCR) Coronavirus HKU1 (PCR) Coronavirus 229E (PCR) Coronavirus NL63 (PCR) Human Metapneumovir PCR Influenza Type A (PCR) Influenza B (RT-PCR) M. pneumoniae (PCR) Parainfluenza 1 (PCR) Parainfluenza 2 (PCR) Parainfluenza 3 (PCR) Parainfluenza 4 (PCR) RSV (PCR) Entero/Rhino (PCR) SARS-CoV-2 (PCR) 11/24/20 11/24/20 11/24/20 01:53 05:00 05:00 WBC 14.19 H RBC 3.76 L Hgb 13.8 L Hct 38.5 L MCV 102.4 H MCH 36.7 H MCHC 35.8 H RDW Coeff of Abebe 13.7 Plt Count 201 Immature Gran % (Auto) 0.4 Neut % (Auto) 85.0 H Lymph % (Auto) 8.2 L [place] % (Auto) 6.0 Eos % (Auto) 0.1 Baso % (Auto) 0.3 Neut # (Auto) 12.1 H Lymph # (Auto) 1.2 [place] # (Auto) 0.9 Eos # (Auto) 0.0 Baso # (Auto) 0.0 Immature Gran # (Auto) 0.1 Sodium 131.6 L Potassium 3.32 L Chloride 98.7 Carbon Dioxide 24.4 Anion Gap 11.82 BUN 8.2 L Creatinine 0.54 L Estimated GFR (MDRD) 160.00 BUN/Creatinine Ratio 15.18 Glucose 154.0 H Calcium 8.38 L Total Bilirubin 3.14 H AST 234.7 H D ALT 112.0 H Alkaline Phosphatase 215.5 H Total Protein 7.18 Albumin 3.45 L Globulin 3.73 Albumin/Globulin Ratio 0.92 Amylase Lipase Urine Color Urine Clarity Urine pH Ur Specific Webb Urine Protein Urine Glucose (UA) Urine Ketones Urine Blood Urine Nitrite Urine Bilirubin Urine Urobilinogen Ur Leukocyte Esterase Adenovirus (PCR) Not detected B. pertussis DNA (PCR) Not detected B.parapertussis DNA PCR Not detected C. pneumoniae DNA (PCR) Not detected Coronavirus OC43 (PCR) Not detected Coronavirus HKU1 (PCR) Not detected Coronavirus 229E (PCR) Not detected Coronavirus NL63 (PCR) Not detected Human Metapneumovir PCR Not detected Influenza Type A (PCR) Not detected Influenza B (RT-PCR) Not detected M. pneumoniae (PCR) Not detected Parainfluenza 1 (PCR) Not detected Parainfluenza 2 (PCR) Not detected Parainfluenza 3 (PCR) Not detected Parainfluenza 4 (PCR) Not detected RSV (PCR) Not detected Entero/Rhino (PCR) Not detected SARS-CoV-2 (PCR) Not detected Orders Category Date Time Status PLACE PATIENT OBSERVATION .TO [facility] (MONITORED BED ADMISSION 11/24/20 01:46 Completed ) ACTIVITY .Up ad [place] CARE 11/24/20 01:42 Active GIVE HS SNACK 2100 CARE 11/24/20 01:42 Active INTAKE & OUTPUT Q8HR CARE 11/24/20 01:42 Active TELEMETRY MONITORING TELE CARE 11/24/20 01:46 Active VITAL SIGNS Q4HR CARE 11/24/20 01:42 Active CLEAR LIQUID DIET DIETARY 11/24/20 Breakfast Ordered HS SNACK DIETARY 11/24/20 Dinner Ordered ED IV/MEDIPORT/POWERPORT .ONCE EMERGENCY 11/23/20 22:01 Completed AMYLASE Stat LAB 11/23/20 22:12 Completed CBC W/ AUTO DIFF DAILY@0600 LAB 11/24/20 05:00 Completed CBC W/ AUTO DIFF DAILY@0600 LAB 11/25/20 06:00 Ordered CBC W/ AUTO DIFF Stat LAB 11/23/20 22:12 Completed COMPREHENSIVE METABOLIC PANEL DAILY@0600 LAB 11/24/20 05:00 Completed COMPREHENSIVE METABOLIC PANEL DAILY@0600 LAB 11/25/20 06:00 Ordered COMPREHENSIVE METABOLIC PANEL Stat LAB 11/23/20 22:12 Completed LIPASE Stat LAB 11/23/20 22:12 Completed RESPIRATORY PANEL 2.1 (PCR) Stat LAB 11/24/20 01:53 Completed URINALYSIS C & S IF INDICATED Stat LAB 11/23/20 23:24 Completed 0.9 % Sodium Chloride [Saline Flush] MEDS 11/23/20 22:01 Active 1 syr IVF PRN PRN Enoxaparin Sodium [Lovenox] MEDS 11/24/20 09:00 Active 40 mg SUBCUT DAILY Hydrochlorothiazide MEDS 11/24/20 09:00 Active 12.5 mg PO DAILY Hydromorphone HCl [Dilaudid 1 mg/ml Syringe] MEDS 11/23/20 22:01 Discontinued 1 mg IVP ONCE STA Hydromorphone HCl [Dilaudid 1 mg/ml Syringe] MEDS 11/23/20 23:18 Discontinued 1 mg IVP ONCE STA Hydromorphone HCl [Dilaudid 1 mg/ml Syringe] MEDS 11/24/20 01:41 Active 1 mg IVP Q4HR PRN Lisinopril [Zestril] MEDS 11/24/20 09:00 Active 10 mg PO DAILY Morphine Sulfate [Morphine 4 mg/ml Syringe] MEDS 11/23/20 22:01 Discontinued 4 mg IVP ONCE STA Ondansetron HCl/Pf [Zofran 4 mg/2 ml] MEDS 11/23/20 22:01 Discontinued 4 mg IVP ONCE STA Ondansetron HCl/Pf [Zofran 4 mg/2 ml] MEDS 11/24/20 01:41 Active 4 mg IVP Q6H PRN Pantoprazole Sodium [Protonix IV] MEDS 11/24/20 09:00 Active 40 mg IVP DAILY Pantoprazole Sodium [Protonix IV] MEDS 11/23/20 22:01 Discontinued 40 mg IVP ONCE STA Sodium Chloride 0.9% [Sodium Chloride] 1,000 ml MEDS 11/24/20 02:00 Active IV 150 mls/hr Sodium Chloride 0.9% [Sodium Chloride] 1,000 ml MEDS 11/23/20 22:01 Discontinued IV BOLUS RESUSCITATION STATUS Routine OTHERS 11/24/20 01:[address] ABD/PEL WO RENAL STONE PROT Stat RADS 11/24/20 00:34 Completed Medications Generic Name Dose Route Start Last Admin Trade Name Freq PRN Reason Stop Dose Admin Enoxaparin Sodium 40 mg 11/24/20 09:00 11/24/20 08:50 Enoxaparin Sodium 40 Mg/0.4 Ml Syr SUBCUT 40 mg DAILY LAYLA Administration Hydrochlorothiazide 12.5 mg 11/24/20 09:00 11/24/20 08:49 Hydrochlorothiazide 25 Mg Tablet PO 12.5 mg DAILY LAYLA Administration Hydromorphone HCl 1 mg 11/24/20 01:41 11/24/20 12:31 Hydromorphone Hcl 1 Mg/Ml Syringe IVP 1 mg Q4HR PRN Administration Severe Pain Sodium Chloride 1,000 mls @ 150 mls/hr 11/24/20 02:00 11/24/20 09:03 Sodium Chloride IV 150 mls/hr .Q6H40M LAYLA Administration Lisinopril 10 mg 11/24/20 09:00 11/24/20 08:50 Lisinopril 10 Mg Tablet PO 10 mg DAILY LAYLA Administration Ondansetron HCl 4 mg 11/24/20 01:41 11/24/20 12:29 Ondansetron Hcl/Pf 4 Mg/2 Ml Sdv IVP 4 mg Q6H PRN Administration NAUSEA AND VOMITING Pantoprazole Sodium 40 mg 11/24/20 09:00 11/24/20 08:45 Pantoprazole Sodium 40 Mg Vial IVP 40 mg DAILY LAYLA Administration Sodium Chloride 1 syr 11/23/20 22:01 11/23/20 23:22 0.9% Sodium Chloride 10 Ml Disp.Syrin IVF 1 syr PRN PRN Administration To flush IV Discontinued Medications Generic Name Dose Route Start Last Admin Trade Name Freq PRN Reason Stop Dose Admin Hydromorphone HCl 1 mg 11/23/20 22:01 11/23/20 22:55 Hydromorphone Hcl 1 Mg/Ml Syringe IVP 11/23/20 22:02 Not Given ONCE STA Hydromorphone HCl 1 mg 11/23/20 23:18 11/23/20 23:22 Hydromorphone Hcl 1 Mg/Ml Syringe IVP 11/23/20 23:19 1 mg ONCE STA Administration Sodium Chloride 1,000 mls @ 1,000 mls/hr 11/23/20 22:01 11/23/20 22:29 Sodium Chloride IV 11/23/20 23:00 1,000 mls/hr BOLUS STA Administration Morphine Sulfate 4 mg 11/23/20 22:01 11/23/20 22:27 Morphine Sulfate 4 Mg/Ml Syringe IVP 11/23/20 22:02 4 mg ONCE STA Administration Ondansetron HCl 4 mg 11/23/20 22:01 11/23/20 22:27 Ondansetron Hcl/Pf 4 Mg/2 Ml Sdv IVP 11/23/20 22:02 4 mg ONCE STA Administration Pantoprazole Sodium 40 mg 11/23/20 22:01 11/23/20 22:28 Pantoprazole Sodium 40 Mg Vial IVP 11/23/20 22:02 40 mg ONCE STA Administration Assessment (1) Acute pancreatitis: Status: Acute Code(s): K85.90 - Acute pancreatitis without necrosis or infection, unspecified SNOMED Code(s): 354861391 Qualifiers: Acute pancreatitis complication: no infection or necrosis Pancreatitis type: idiopathic Qualified Code(s): K85.00 - Idiopathic acute pancreatitis without necrosis or infection Assessment: Nausea and vomiting Diffuse abdominal pain Anxiety Plan Plan: continue IV fluids continue pain medicaitons continue Nausea Medication as needed continue clear liquid diet.
[2020-11-24] MEDS: SODIUM CHLORIDE 0.9%-KCL 20 MEQ 1,000 ML IV SCH ×2 (16:13→22:34)
[2020-11-25] MEDS: DILAUDID 1 MG/ML SYRINGE IVP PRN ×4 (01:06→13:01)
[2020-11-25] MEDS ORDERED: TYLENOL PO PRN (01:33)
[2020-11-25] MEDS: ZOFRAN 4 MG/2 ML IVP PRN ×2 (05:04→10:44)
[2020-11-25 05:08] LABS: BASOPHILS % (AUTO) 0.3 % (0.0-3.0); EOSINOPHILS % (AUTO) 0.2 % (0.0-7.0); HEMOGLOBIN 11.5 g/dl (14.0-18.0); IMMATURE GRANULOCYTE # (AUTO) 0.1 (0.0-1.0); IMMATURE GRANULOCYTE % (AUTO) 0.4 % (0.0-5.0); LYMPHOCYTES # (AUTO) 1.3 K/uL (0.60-3.4); LYMPHOCYTES % (AUTO) 11.5 (10.0-50.0); MEAN CORPUSCULAR HEMOGLOBIN 36.2 pg (27.0-31.0); MEAN CORPUSCULAR HGB CONC 34.8 (31.8-35.4); MEAN CORPUSCULAR VOLUME 103.8 fl (80.0-94.0); MONOCYTES # (AUTO) 0.7 K/uL (0.4-2.0); MONOCYTES % (AUTO) 6.1 (0-10); NEUTROPHILS # (AUTO) 9.3 K/ul (2.0-6.9); NEUTROPHILS % (AUTO) 81.5 % (42.2-75.2); PLATELET COUNT 156 10^3/uL (140-440); RDW COEFFICIENT OF VARIATION 13.4 % (11.6-14.8); RED BLOOD COUNT 3.18 10^6/ul (4.70-6.10); WHITE BLOOD COUNT 11.38 K/ul (4.2-10.2)
[2020-11-25 05:21] LABS: ALANINE AMINOTRANSFERASE 105.8 U/L (0-50); ALBUMIN 2.97 g/dL (3.5-5.0); ASPARTATE AMINO TRANSFERASE 159.4 U/L (17-59); BILIRUBIN,TOTAL 3.85 mg/dL (0.2-1.3); BLOOD UREA NITROGEN 3.1 mg/dL (9-20); CALCIUM 8.18 mg/dL (8.4-10.2); CARBON DIOXIDE 29.6 mmol/L (22-30.0); CHLORIDE 97.9 mmol/L (98-107); CREATININE 0.51 mg/dL (0.60-1.10); GLUCOSE 147.5 mg/dL (74-106); LIPASE 218.6 U/L (23-300); MAGNESIUM 1.61 mg/dL (1.6-2.3); POTASSIUM 2.94 mmol/L (3.5-5.1); SODIUM 131.1 mmol/L (134.5-145); TOTAL PROTEIN 6.26 g/dL (6.3-8.2)
[2020-11-25] MEDS: SODIUM CHLORIDE 0.9%-KCL 20 MEQ 1,000 ML IV SCH ×2 (05:50→13:01)
[2020-11-25] MEDS ORDERED: POTASSIUM CHLORIDE 20 MEQ/100 ML PREMIX 20 MEQ/100 ML BAG IV STA (08:40)
--- NOTE | 2020-11-25 08:46 | PCM.PROG ---
Date Seen by Provider: 11/25/20 Time Seen by Provider: 10:00 Subjective: Patient states that he is still having diffuse abdominal pain even though the pain had move a little lower than yesterday. His pain medication only last 2 hours. Rates his pain at 7/10 Last Bowel movement was 3 days ago. Had no nausea or vomiting last night. Tolerating clear liquids today. Objective: GEN : appears uncomfortable Vitals: T=97.8 F, P=98, R=18, LL=850/83, SPO2=96 HEENT: [Mucus membranes moist ] Neck: [supple NO JVD] Lungs: [ Clinically clear bilaterally ] CVS: [RRR, No murmur, S1 and S2 only] Abdomen: [Distended, Tender to palpation. Extremities: [NO edema no cyanosis] Neurological: [Awake alert and oriented x 3 ] Skin: [No skin rash ] Lab/Tests/Diagnostic Imaging: [ noted elevated bilirubim and persitent elevated Liver enzymes. WBC decrased ] IMPRESSION: Redemonstration of changes consistent with acute pancreatitis overall similar in degree to that previously seen on the prior day unenhanced CT including peripancreatic fat stranding. A 13 mm low attenuation region within the uncinate process of the pancreas could represent early pancreatic parenchymal necrosis or ductal dilatation versus a cystic pancreatic lesion. (1) Hypokalemia due to excessive gastrointestinal loss of potassium: Status: Acute Code(s): E87.6 - Hypokalemia SNOMED Code(s): 08012431 (2) Chronic back pain: Status: Acute Code(s): M54.9 - Dorsalgia, unspecified; G89.29 - Other chronic pain SNOMED Code(s): 534440392 (3) Acute pancreatic necrosis: Status: Acute Code(s): K85.91 - Acute pancreatitis with uninfected necrosis, unspecified SNOMED Code(s): 09075414
[2020-11-25] MEDS ORDERED: ZOSYN 3.375 GM 3.375 GM in SODIUM CHLORIDE 50 ML IV SCH (09:30)
[2020-11-25] MEDS: HYDROCHLOROTHIAZIDE PO SCH (10:06)
[2020-11-25] MEDS: PROTONIX IV IVP SCH (10:07)
[2020-11-25] MEDS: ZESTRIL PO SCH (10:07)
[2020-11-25] MEDS: LOVENOX SUBCUT SCH (10:08)
--- NOTE | 2020-11-25 10:21 | CT ---
EXAM: CT ABDOMEN AND PELVIS HISTORY: Pancreatitis, abdominal pain TECHNIQUE: CT abdomen and pelvis with intravenous contrast. Images were reconstructed using 5 mm se ction thickness. Reformations were prepared. COMPARISON: 1 day back, 11/24/[address] FINDINGS: Enlarged severely fatty liver again noted. No focal hepatic lesion or intrahepatic biliary dilatatio n. Spleen within normal limits. Gallbladder is absent. There is moderate peripancreatic fat stranding similar to that previously seen. There is a 13 mm low attenuation region within the uncinate process of the pancreas which could represent early pancreati c parenchymal necrosis, a cystic pancreatic lesion or focal ductal dilatation. The remainder of the pancreas enhanced normally. There is trace amount of pelvic ascites. No pseudocyst. Adrenal glands within normal limits. Small renal cysts. No hydronephrosis. Atherosclerotic disease is again noted. Multiple small periaortic lymph nodes, nonspecific. The distal stomach and the duo denal sweep are within the inflamed region of the mid abdomen. Normal appendix and general bowel gas pattern. Urinary bladder and prostate are within normal limits. Stable appearance of the bones. L david bases are clear with no pleural fluid. There is no pneumoperitoneum. IMPRESSION: Redemonstration of changes consistent with acute pancreatitis overall similar in degree t o that previously seen on the prior day unenhanced CT including peripancreatic fat stranding. A 13 m m low attenuation region within the uncinate process of the pancreas could represent early pancreatic parenchymal necrosis or ductal dilatation versus a cystic pancreatic lesion. All CT scans are performed using dose optimization techniques as appropriate to the performed exam an d include at least one of the following: Automated exposure control, adjustment of the mA and/or kV according t o size, and the use of iterative reconstruction technique.
[2020-11-25 13:22] VITALS: BP 111/71; TEMP 97.9
--- NOTE | 2020-11-27 06:41 | PCM.DC ---
Final Diagnosis: Acute Pancreatitis, Abdominal pain, Hypokalemia (1) Hypokalemia due to excessive gastrointestinal loss of potassium: Status: Acute Code(s): E87.6 - Hypokalemia SNOMED Code(s): 73655656 (2) Chronic back pain: Status: Acute Code(s): M54.9 - Dorsalgia, unspecified; G89.29 - Other chronic pain SNOMED Code(s): 772049798 Qualifiers: Back pain location: low back pain Back pain laterality: unspecified Sciatica presence: unspecified whether sciatica present Qualified Code(s): M54.5 - Low back pain; G89.29 - Other chronic pain (3) Acute pancreatic necrosis: Status: Acute Code(s): K85.91 - Acute pancreatitis with uninfected necrosis, unspecified SNOMED Code(s): 36534289 Reason for Hospitalization: intractable Abdominal pain with Acute pancraetitis and possible pancreatic necrosis Prognosis at Discharge: stable upon discharge, pain controlled only after Dilaudid given. Vital sign stable Nausea and vomiting improved. Condition at Discharge: Stable for transfer. Medications at Discharge: Ambulatory Orders Medication Instructions Recorded albuterol sulfate 2 puff INHALATION QID PRN 06/28/20 pantoprazole [Protonix] 20 mg PO DAILY 06/28/20 acetaminophen [Tylenol Extra 1,000 mg PO Q8H PRN 11/15/20 Strength] acetaminophen [Tylenol] 650 mg PO Q8HR PRN #20 cap 11/15/20 lisinopril-hydrochlorothiazide 1 tab PO DAILY 11/23/20 Follow-ups: After discharge from other hospital he will be given instructions for follow up Discharge Disposition: Acute Care Facility Hospital Course: Patient was admitted to the [facility] for severe abdominal pain with diagnosis of Acute pancreatitis, nausea vomiting and hypokalemia. His nausea and vomiting improve but his abdominal pain persisted only being relived for 2 hours. Abdomen was also tender to palpation. Repeate Ct scan was as follows "Redemonstration of changes consistent with acute pancreatitis overall similar in degree to that previously seen on the prior day unenhanced CT including peripancreatic fat stranding. A 13 mm low attenuation region within the uncinate process of the pancreas could represent early pancreatic parenchymal necrosis or ductal dilatation versus a cystic pancreatic lesion. Plan: Transfer to [facility] under the care of Dr Wyman.
== END 2020-11-25 13:45 | disposition short-term general hospital (02) ==
LOC: MEDSURG A 21:39 → ED 21:39 → MEDSURG A 11-24 03:15
PROVIDERS: ADMIT Internal Medicine Geriatric Medicine; ATTEND Internal Medicine Geriatric Medicine
DX: Z20.822 Contact with and (suspected) exposure to COVID-19; R63.0 Anorexia; F41.9 Anxiety disorder, unspecified; R10.9 Unspecified abdominal pain; R11.2 Nausea with vomiting, unspecified; M54.9 Dorsalgia, unspecified

== ENCOUNTER 2021-09-21 13:47 | Inpatient (IN) ==
[2021-09-21] MEDS ORDERED: PEPCID IVP STA (13:50)
[2021-09-21] MEDS ORDERED: SODIUM CHLORIDE 1,000 ML IV STA (13:50)
[2021-09-21] MEDS ORDERED: ASPIRIN CHEWABLE PO STA (13:50)
[2021-09-21] MEDS ORDERED: MORPHINE 4 MG/ML SYRINGE IVP STA ×2 (13:54→16:03)
[2021-09-21] MEDS ORDERED: ZOFRAN 4 MG/2 ML IVP ONE (13:54)
[2021-09-21 14:12] LABS: BASOPHILS # (AUTO) 0.1 K/uL (0-0.2); BASOPHILS % (AUTO) 0.5 % (0.0-3.0); EOSINOPHILS % (AUTO) 0.2 % (0.0-7.0); HEMATOCRIT 43.5 % (42.0-52.0); HEMOGLOBIN 15.5 g/dl (14.0-18.0); IMMATURE GRANULOCYTE # (AUTO) 0.1 (0.0-1.0); IMMATURE GRANULOCYTE % (AUTO) 0.5 % (0.0-5.0); LYMPHOCYTES # (AUTO) 1.6 K/uL (0.60-3.4); MEAN CORPUSCULAR HEMOGLOBIN 34.2 pg (27.0-31.0); MEAN CORPUSCULAR HGB CONC 35.6 (31.8-35.4); MONOCYTES # (AUTO) 0.8 K/uL (0.4-2.0); MONOCYTES % (AUTO) 5.1 (0-10); NEUTROPHILS # (AUTO) 12.1 K/ul (2.0-6.9); NEUTROPHILS % (AUTO) 82.7 % (42.2-75.2); PLATELET COUNT 187 10^3/uL (140-440); RDW COEFFICIENT OF VARIATION 12.5 % (11.6-14.8); RED BLOOD COUNT 4.53 10^6/ul (4.70-6.10); WHITE BLOOD COUNT 14.67 K/ul (4.2-10.2)
--- NOTE | 2021-09-21 14:24 | DI ---
EXAM: Chest one view HISTORY: Chest pain COMPARISON: 11/15/2020 TECHNIQUE: Single view of the chest was performed FINDINGS: The lungs are clear. There is no pleural effusion or pneumothorax. The heart is normal i n size. The mediastinal contour is normal. There are no acute abnormalities of the bones. Metallic shrapnel in the right upper thorax appears unchanged. IMPRESSION: No acute cardiopulmonary process.
[2021-09-21 14:27] LABS: AMYLASE 142.4 U/L (30-110); CREATINE KINASE 139.7 U/L (55-170); LIPASE 615.5 U/L (23-300); MAGNESIUM 1.47 mg/dL (1.6-2.3)
--- NOTE | 2021-09-21 14:39 | ED.PDOC ---
General ED Provider: Dr. FADI KENT Chief Complaint: Chest Pain Stated Complaint: Pt presents with chest and abdominal pain. Pt was seen yesterday and was D/C'd with mild pancreatitis. He went home and his pain has returned It is in the epigastric region as well as the chest. He has had some nausea without vomiting. He denies any SOB or diaphoresis. He was diagnosed with elevated triglycerides last night. The pain has been constant since last light but worsened prior to arrival. Nothing else has made the sxs better or worse and they are mild in nature. Pt has a h/o of cholecystectomy. Time Seen by Provider: 09/21/21 13:48 Mode of Arrival: Wheelchair Information Source: Patient Nursing and Triage Documentation Reviewed and Agree: Yes Does patient meet sepsis criteria?: No If yes, has appropriate treatment been initiated?: No System Inflammatory Response Syndrome: Not Applicable Sepsis Protocol: For patient's 13 years and over: Temp is 96.8 and below OR 101 and greater Pulse >90 BPM Resp >20/minute Acutely Altered Mental Status Are patient's symptoms suggestive of a new infection, such as: -Pneumonia -Skin, Soft Tissue -Endocarditis -UTI -Bone, Joint Infection -Implantable Device -Acute Abdominal Infection -Wound Infection -Meningitis -Blood Stream Catheter Infection -Unknown Review of Systems Review Of Systems Constitutional: Reports No symptoms Eyes: Reports No symptoms Ears, Nose, Mouth, Throat: Reports No symptoms Respiratory: Reports No symptoms Cardiac: Reports Chest pain GI: Reports Abdominal pain (Epigastric) and Nausea : Reports No symptoms Musculoskeletal: Reports No symptoms Skin: Reports No symptoms Neurological: Reports No symptoms Endocrine: Reports No symptoms Hematologic/Lymphatic: Reports No symptoms All Other Systems: Reviewed and Negative [facility] Medical History Asthma Chronic back pain DDD (degenerative disc disease), lumbar Diverticulosis Fatty liver GERD (gastroesophageal reflux disease) Hypertension Pancreatitis Family History FATHER Diabetes Social History Smoking and tobacco status: Current every day smoker Tobacco type: cigarettes Smoking packs per day: 1 Smoking cigarettes per day: 20.0 Years smoked: 30 Smoking pack-years: 30.00 Tobacco: How many years used: 30 Quit status: not considering quitting Alcohol intake: current Alcohol intake frequency: a few times a week Alcohol type: wine Surgical History History of cholecystectomy History of nasal surgery Physical Exam Physical Exam Appearance: Reports Well-appearing and Well-nourished Ill-appearing: None Pain Distress: Moderate Eyes: Reports NIKOLAI, EOMI and Conjunctiva clear ENT: Reports Not Examined Neck: Supple Respiratory: Reports Airway patent, Breath sounds clear, Breath sounds equal and Respirations nonlabored Cardiovascular: Reports RRR, Pulses normal, No rub and No murmur GI/: Reports Soft, No masses, Bowel sounds normal, No Organomegaly and Tender (Epigastric TTP) Musculoskeletal: Reports Normal strength, ROM intact, No edema and No calf tenderness Skin: Reports Warm, Dry and Normal color Neurological: Reports Sensation intact, Motor intact, Reflexes intact, Cranial nerves intact, Alert and Oriented Psychiatric: Reports Affect appropriate and Mood appropriate Interpretation EKG Interpretation Time of EKG #1: 14:00 Rate: Normal Rhythm: Sinus Ectopy: None [place]: NL ST Segment: Normal Critical Care Note Critical Care Note Total Critical Care Time (mins): 0 Course Course Hematology/Chemistry: 09/21/21 14:07 Orders, Labs, Meds: Lab Review 09/21/21 09/21/21 14:07 14:07 WBC 14.67 H RBC 4.53 L Hgb 15.5 Hct 43.5 D MCV 96.0 H MCH 34.2 H MCHC 35.6 H RDW Coeff of Abebe 12.5 Plt Count 187 D Immature Gran % (Auto) 0.5 Neut % (Auto) 82.7 H Lymph % (Auto) 11.0 [place] % (Auto) 5.1 Eos % (Auto) 0.2 Baso % (Auto) 0.5 Neut # (Auto) 12.1 H Lymph # (Auto) 1.6 [place] # (Auto) 0.8 Eos # (Auto) 0.0 Baso # (Auto) 0.1 Immature Gran # (Auto) 0.1 Magnesium 1.47 L Total Creatine Kinase 139.7 CK-MB (CK-2) 3.090 H CK-MB (CK-2) % 2.2100 Troponin I < 0.012 Amylase 142.4 H D Lipase 615.5 H Orders Category Date Time Status ADMIT PATIENT INPATIENT .TO MEDSURG (NON-MONITORED ADMISSION 09/21/21 15:06 Ordered BED) EKG-(ED ONLY) Stat CARDIO 09/21/21 13:50 Completed NPO [NOTHING BY MOUTH] DIETARY 09/21/21 Dinner Ordered AMYLASE Stat LAB 09/21/21 14:07 Completed CBC W/ AUTO DIFF DAILY@0600 LAB 09/22/21 06:00 Ordered CBC W/ AUTO DIFF Stat LAB 09/21/21 14:07 Completed CMP [COMPREHENSIVE METABOLIC PANEL] DAILY@0600 LAB 09/22/21 06:00 Ordered CREATINE KINASE Stat LAB 09/21/21 14:07 Completed LIPASE DAILY@0600 LAB 09/22/21 06:00 Ordered LIPASE DAILY@0600 LAB 09/23/21 06:00 Ordered LIPASE Stat LAB 09/21/21 14:07 Completed MAGNESIUM Stat LAB 09/21/21 14:07 Completed TROPONIN I Routine LAB 09/21/21 15:10 Ordered TROPONIN I Stat LAB 09/21/21 14:07 Completed Aspirin [Aspirin Chewable] MEDS 09/21/21 13:50 Discontinued 324 mg PO ONCE STA Famotidine Inj [Pepcid] MEDS 09/21/21 13:50 Discontinued 20 mg IVP ONCE STA Magnesium Sulfate Vial [Magnesium Sulfate 1 gm/2 ml MEDS 09/21/21 14:43 Discontinued Vial] 2 gm 0.9 % Sodium Chloride [Sodium Chloride 100Ml] 100 ml IV ONCE Morphine Sulfate [Morphine 2 mg/ml Vial] MEDS 09/21/21 15:06 Ordered 4 mg IVP Q3H PRN Morphine Sulfate [Morphine 4 mg/ml Syringe] MEDS 09/21/21 13:54 Discontinued 4 mg IVP ONCE STA Ondansetron HCl/Pf [Zofran 4 mg/2 ml] MEDS 09/21/21 13:54 Discontinued 4 mg IVP ONCE ONE Ondansetron HCl/Pf [Zofran 4 mg/2 ml] MEDS 09/21/21 15:06 Ordered 4 mg IVP Q8H PRN SODIUM CHLORIDE 0.9% @ 100 MLS/HR(1,000ml) MEDS 09/21/21 15:30 Ordered Sodium Chloride 0.9% [Sodium Chloride] 1,000 ml IV 100 mls/hr Sodium Chloride 0.9% [Sodium Chloride] 1,000 ml MEDS 09/21/21 13:50 Discontinued IV BOLUS CHEST, 1V AP ONLY Stat RADS 09/21/21 13:50 Completed Medications Discontinued Medications Generic Name Dose Route Start Last Admin Trade Name Mainq PRN Reason Stop Dose Admin Aspirin 324 mg 09/21/21 13:50 09/21/21 14:47 Aspirin 81 Mg Tab.Chew PO 09/21/21 13:51 324 mg ONCE STA Administration Famotidine 20 mg 09/21/21 13:50 09/21/21 14:45 Famotidine Inj 20 Mg/2 Ml Vial IVP 09/21/21 13:51 20 mg ONCE STA Administration Sodium Chloride 1,000 mls @ 1,000 mls/hr 09/21/21 13:50 09/21/21 14:47 Sodium Chloride IV 09/21/21 14:49 1,000 mls/hr BOLUS STA Administration Magnesium Sulfate 2 gm/ Sodium 104 mls @ 400 mls/hr 09/21/21 14:43 Chloride IV 09/21/21 14:59 ONCE STA Morphine Sulfate 4 mg 09/21/21 13:54 09/21/21 14:45 Morphine Sulfate 4 Mg/Ml Syringe IVP 09/21/21 13:55 4 mg ONCE STA Administration Ondansetron HCl 4 mg 09/21/21 13:54 09/21/21 14:45 Ondansetron Hcl/Pf 4 Mg/2 Ml Sdv IVP 09/21/21 13:55 4 mg ONCE ONE Administration Vital Signs: Temp Pulse Resp BP Pulse Ox 09/21/21 13:48 96.9 F L 104 H 20 175/102 H 97 Discharge Plan Discharge Patient Disposition: ADMITTED INPATIENT Discharge Problem: Acute pancreatitis, Atypical chest pain Prescriptions: No Action pantoprazole [Protonix] 20 mg Tablet,Delayed Release (Dr/Ec) 20 mg PO DAILY 0RF albuterol sulfate 90 mcg/actuation Hfa Aerosol Inhaler 2 puff INHALATION QID PRN (Reason: short of air) 0RF acetaminophen [Tylenol Extra Strength] 500 mg Tablet 1,000 mg PO Q8H PRN (Reason: Pain) 0RF acetaminophen [Tylenol] 325 mg capsule 650 mg PO Q8HR PRN (Reason: pain) Qty: 20 0RF icosapent ethyl 1 gram capsule 2 g PO BID Qty: 60 0RF hydrocodone-acetaminophen 1 TAB tablet 1 ea PO Q6HR PRN (Reason: severe pain ) Qty: 15 0RF Rx Instructions: ondansetron HCl 4 mg tablet 4 mg PO Q8H PRN (Reason: Nausea / Vomiting) Qty: 14 0RF ED Provider: FAID KENT Condition: Stable Physician Progress Note: I reviewed pt results. CBC shows a WBC of 14.7 which is likelt a stress reaction. Chems show a lipase of 615 and amylase of 142 which are up from yesterday. His Mg is 1.5 which will be replaced. CXR is negative. On reeval, he is still having some pain. Will need to admit and make NPO with fluids, pain meds and nausea meds. I feel cardiac disease is very unlikely but will repeat a trop in am with cehr other labs.
[2021-09-21 14:40] LABS: TROPONIN I < 0.012 ng/ml (0.0000-0.120)
[2021-09-21] MEDS ORDERED: MAGNESIUM SULFATE 1 GM/2 ML VIAL 2 GM in SODIUM CHLORIDE 100ML 100 ML IV STA (14:43)
[2021-09-21] MEDS ORDERED: ZOFRAN 4 MG/2 ML IVP PRN (15:06)
[2021-09-21] MEDS ORDERED: MAGNESIUM SULFATE 1 GM/2 ML VIAL ONE (15:10)
[2021-09-21] MEDS ORDERED: MORPHINE 4 MG/ML SYRINGE IVP PRN (15:35)
[2021-09-21 18:08] VITALS: BMI 30.4
[2021-09-21] MEDS: SODIUM CHLORIDE 1,000 ML IV SCH (18:17)
[2021-09-21] MEDS: MORPHINE 2 MG/ML VIAL IVP PRN ×2 (18:30→22:03)
[2021-09-21] MEDS ORDERED: TYLENOL PO PRN (18:42)
[2021-09-21] MEDS ORDERED: VENTOLIN HFA (PER PUFF-WITH SPACER) IH PRN (18:42)
[2021-09-21] MEDS ORDERED: BENADRYL IV ONE (20:35)
[2021-09-21] MEDS ORDERED: SODIUM CHLORIDE IV ONE (20:35)
[2021-09-21] MEDS ORDERED: BENADRYL ONE (21:21)
[2021-09-22] MEDS: MORPHINE 2 MG/ML VIAL IVP PRN ×6 (02:24→21:58)
[2021-09-22] MEDS: SODIUM CHLORIDE 1,000 ML IV SCH ×2 (05:02→14:32)
[2021-09-22 05:52] LABS: BASOPHILS # (AUTO) 0.1 K/uL (0-0.2); BASOPHILS % (AUTO) 0.3 % (0.0-3.0); EOSINOPHILS % (AUTO) 0.1 % (0.0-7.0); HEMATOCRIT 44.9 % (42.0-52.0); HEMOGLOBIN 15.3 g/dl (14.0-18.0); IMMATURE GRANULOCYTE % (AUTO) 0.3 % (0.0-5.0); LYMPHOCYTES # (AUTO) 1.3 K/uL (0.60-3.4); LYMPHOCYTES % (AUTO) 8.7 (10.0-50.0); MEAN CORPUSCULAR HEMOGLOBIN 33.4 pg (27.0-31.0); MEAN CORPUSCULAR HGB CONC 34.1 (31.8-35.4); MONOCYTES # (AUTO) 0.7 K/uL (0.4-2.0); MONOCYTES % (AUTO) 4.5 (0-10); NEUTROPHILS # (AUTO) 13.2 K/ul (2.0-6.9); NEUTROPHILS % (AUTO) 86.1 % (42.2-75.2); PLATELET COUNT 168 10^3/uL (140-440); RDW COEFFICIENT OF VARIATION 12.8 % (11.6-14.8); RED BLOOD COUNT 4.58 10^6/ul (4.70-6.10)
[2021-09-22 06:06] LABS: ALANINE AMINOTRANSFERASE 109.4 U/L (0-50); ALBUMIN 4.44 g/dL (3.5-5.0); ASPARTATE AMINO TRANSFERASE 93.4 U/L (17-59); BILIRUBIN,TOTAL 2.25 mg/dL (0.2-1.3); BLOOD UREA NITROGEN 6.3 mg/dL (9-20); CALCIUM 9.23 mg/dL (8.4-10.2); CARBON DIOXIDE 29.4 mmol/L (22-30.0); CHLORIDE 98.6 mmol/L (98-107); CREATININE 0.65 mg/dL (0.60-1.10); GLUCOSE 134.8 mg/dL (74-106); POTASSIUM 3.77 mmol/L (3.5-5.1); SODIUM 134.8 mmol/L (134.5-145); TOTAL PROTEIN 7.93 g/dL (6.3-8.2)
[2021-09-22] MEDS: PROTONIX IV IVP SCH (08:24)
[2021-09-22] MEDS ORDERED: PRILOSEC PO SCH (09:00)
[2021-09-22] MEDS ORDERED: BENADRYL IV PRN (13:17)
[2021-09-22] MEDS ORDERED: SODIUM CHLORIDE IV PRN (13:17)
[2021-09-22] MEDS ORDERED: BENADRYL ONE (21:51)
[2021-09-23] MEDS: SODIUM CHLORIDE 1,000 ML IV SCH ×3 (01:19→21:58)
[2021-09-23] MEDS: MORPHINE 2 MG/ML VIAL IVP PRN ×3 (03:33→12:49)
[2021-09-23] MEDS ORDERED: ZOFRAN 4 MG/2 ML IVP PRN (08:10)
[2021-09-23] MEDS: PROTONIX IV IVP SCH (08:42)
--- NOTE | 2021-09-23 15:22 | PCM.PROG ---
Date Seen by Provider: 09/23/21 Time Seen by Provider: 14:30 Subjective: FEELING BETTER, REQUESTION PO LIQUIDS Objective: Vitals: T=97.4 F, P=80, R=16, CR=515/74, SPO2=97 HEENT: cLEAR. Neck: SOFT SUPPLE Lungs: cta CVS:HR RRR Abdomen: soft non tender Extremities: neg edema Neurological: AAOX3; no focal deficit Skin: [] Lab/Tests/Diagnostic Imaging: [] (1) Acute pancreatitis: Status: Acute Code(s): K85.90 - Acute pancreatitis without necrosis or infection, unspecified SNOMED Code(s): 606833348 (2) Chronic pancreatitis: Status: Acute Code(s): K86.1 - Other chronic pancreatitis SNOMED Code(s): 721114907 (3) Chronic back pain: Status: Acute Code(s): M54.9 - Dorsalgia, unspecified; G89.29 - Other chronic pain SNOMED Code(s): 761490190 Plan: advance to clear liquids Review lab in am
[2021-09-23] MEDS: MORPHINE 2 MG/ML VIAL IM PRN (17:50)
[2021-09-23] MEDS: VISTARIL INJ IM PRN (21:57)
[2021-09-24] MEDS: MORPHINE 2 MG/ML VIAL IM PRN ×4 (01:02→22:22)
[2021-09-24] MEDS: SODIUM CHLORIDE 1,000 ML IV SCH ×2 (07:48→18:14)
[2021-09-24 07:54] LABS: BASOPHILS # (AUTO) 0.1 K/uL (0-0.2); BASOPHILS % (AUTO) 0.6 % (0.0-3.0); EOSINOPHILS # (AUTO) 0.2 K/ul (0.0-0.7); EOSINOPHILS % (AUTO) 1.9 % (0.0-7.0); HEMATOCRIT 38.2 % (42.0-52.0); HEMOGLOBIN 12.8 g/dl (14.0-18.0); IMMATURE GRANULOCYTE % (AUTO) 0.4 % (0.0-5.0); LYMPHOCYTES # (AUTO) 1.5 K/uL (0.60-3.4); LYMPHOCYTES % (AUTO) 19.4 (10.0-50.0); MEAN CORPUSCULAR HEMOGLOBIN 33.6 pg (27.0-31.0); MEAN CORPUSCULAR HGB CONC 33.5 (31.8-35.4); MEAN CORPUSCULAR VOLUME 100.3 fl (80.0-94.0); MONOCYTES # (AUTO) 0.8 K/uL (0.4-2.0); MONOCYTES % (AUTO) 9.7 (0-10); NEUTROPHILS # (AUTO) 5.4 K/ul (2.0-6.9); PLATELET COUNT 169 10^3/uL (140-440); RDW COEFFICIENT OF VARIATION 12.7 % (11.6-14.8); RED BLOOD COUNT 3.81 10^6/ul (4.70-6.10); WHITE BLOOD COUNT 7.93 K/ul (4.2-10.2)
[2021-09-24 07:59] LABS: ALANINE AMINOTRANSFERASE 49.6 U/L (0-50); ALBUMIN 3.62 g/dL (3.5-5.0); ALKALINE PHOSPHATASE 103.2 U/L (38-126); AMYLASE 94.6 U/L (30-110); ASPARTATE AMINO TRANSFERASE 36.9 U/L (17-59); BILIRUBIN,TOTAL 1.22 mg/dL (0.2-1.3); BLOOD UREA NITROGEN 8.3 mg/dL (9-20); CALCIUM 9.29 mg/dL (8.4-10.2); CARBON DIOXIDE 26.8 mmol/L (22-30.0); CHLORIDE 102.3 mmol/L (98-107); CREATININE 0.55 mg/dL (0.60-1.10); GLUCOSE 189.6 mg/dL (74-106); LIPASE 351.2 U/L (23-300); POTASSIUM 3.54 mmol/L (3.5-5.1); SODIUM 133.4 mmol/L (134.5-145); TOTAL PROTEIN 6.7 g/dL (6.3-8.2)
[2021-09-24] MEDS: PROTONIX IV IVP SCH (09:04)
[2021-09-24] MEDS: VISTARIL INJ IM PRN ×3 (09:48→23:00)
--- NOTE | 2021-09-25 03:28 | PCM.PROG ---
Date Seen by Provider: 09/24/21 Time Seen by Provider: 12:00 Subjective: Date of admit - 09/21/21 HPI - 51 y/o admit for acute pancreatitis, somewhat recurrent, gallstone pancreatitis last year, since had the GB removed, hx of alcohol abuse ("drinking less") and hx high TG. He says that overall he is feeling better and can likely go home tomorrow. He says he will need an Rx for TG med. Objective: Vitals: T=98.5 F, P=86, R=18, VU=243/84, SPO2=99 HEENT: [WNL] Neck: [supple] Lungs: [clear] CVS: [RRR] Abdomen: [soft, no pain] Extremities: [intact] Neurological: [intact] Skin: [wnl] Lab/Tests/Diagnostic Imaging: [Improving amylase/lipase and improved liver tests.] (1) Acute pancreatitis: Status: Acute Code(s): K85.90 - Acute pancreatitis without necrosis or infection, unspecified SNOMED Code(s): 395526496 Assessment: Clinically improving. Recheck labs. He did have some elevated liver markers, and GB removed. Cannot exclude that he had a tiny common duct gallstone not seen on CT. (2) Chronic pancreatitis: Status: Acute Code(s): K86.1 - Other chronic pancreatitis SNOMED Code(s): 869529733 Assessment: Etiology likely partially due to ongoing alcohol use, although he says drinking a lot less. He says he also has hx of very high TG, which can cause pancreatitis. Check labs. (3) Mixed hypertriglyceridemia: Status: Acute Code(s): E78.2 - Mixed hyperlipidemia SNOMED Code(s): 32573039 Assessment: Order lipid profile. He will need a fenofibrate or some similar Rx when d/c from hospital. Plan: Labs in the morning. Anticipate d/c soon.
[2021-09-25] MEDS: SODIUM CHLORIDE 1,000 ML IV SCH (04:23)
[2021-09-25 05:14] VITALS: BP 135/90; TEMP 98.3
[2021-09-25 05:25] LABS: BASOPHILS % (AUTO) 0.5 % (0.0-3.0); EOSINOPHILS # (AUTO) 0.1 K/ul (0.0-0.7); EOSINOPHILS % (AUTO) 2.1 % (0.0-7.0); HEMATOCRIT 34.1 % (42.0-52.0); HEMOGLOBIN 11.5 g/dl (14.0-18.0); IMMATURE GRANULOCYTE % (AUTO) 0.5 % (0.0-5.0); LYMPHOCYTES # (AUTO) 1.6 K/uL (0.60-3.4); MEAN CORPUSCULAR HEMOGLOBIN 33.9 pg (27.0-31.0); MEAN CORPUSCULAR HGB CONC 33.7 (31.8-35.4); MEAN CORPUSCULAR VOLUME 100.6 fl (80.0-94.0); MONOCYTES # (AUTO) 0.7 K/uL (0.4-2.0); MONOCYTES % (AUTO) 12.7 (0-10); NEUTROPHILS # (AUTO) 3.3 K/ul (2.0-6.9); NEUTROPHILS % (AUTO) 57.2 % (42.2-75.2); PLATELET COUNT 147 10^3/uL (140-440); RDW COEFFICIENT OF VARIATION 12.7 % (11.6-14.8); RED BLOOD COUNT 3.39 10^6/ul (4.70-6.10); WHITE BLOOD COUNT 5.77 K/ul (4.2-10.2)
[2021-09-25 05:35] LABS: ALANINE AMINOTRANSFERASE 40.5 U/L (0-50); ALBUMIN 3.11 g/dL (3.5-5.0); ALKALINE PHOSPHATASE 90.2 U/L (38-126); AMYLASE 74.3 U/L (30-110); ASPARTATE AMINO TRANSFERASE 38.3 U/L (17-59); BILIRUBIN,TOTAL 0.65 mg/dL (0.2-1.3); BLOOD UREA NITROGEN 6.2 mg/dL (9-20); CALCIUM 8.74 mg/dL (8.4-10.2); CARBON DIOXIDE 27.5 mmol/L (22-30.0); CHLORIDE 105.5 mmol/L (98-107); CHOLESTEROL 218.1 mg/dL (0-200); CREATININE 0.46 mg/dL (0.60-1.10); GLUCOSE 152.7 mg/dL (74-106); HDL CHOLESTEROL 32.5 mg/dL (35-60); LIPASE 317.7 U/L (23-300); POTASSIUM 3.27 mmol/L (3.5-5.1); SODIUM 134.5 mmol/L (134.5-145); TOTAL PROTEIN 6.06 g/dL (6.3-8.2); TRIGLYCERIDES 204.3 mg/dL (0-150)
[2021-09-25] MEDS: MORPHINE 2 MG/ML VIAL IM PRN (06:36)
[2021-09-25] MEDS: VISTARIL INJ IM PRN (09:11)
[2021-09-25] MEDS: PROTONIX IV IVP SCH (09:11)
--- NOTE | 2021-09-26 08:54 | PCM.DC ---
Final Diagnosis Acute Pancreatitis Elevated Triglycerides Physical Exam Appearance: Well-appearing, No pain distress, Well-nourished and Obese Ill-appearing: Mild Pain Distress: Not Applicable Eyes: NIKOLAI, EOMI, Conjunctiva clear, Right pupil size and Left pupil size ENT: Ears normal, Nose normal and Oropharynx normal Neck: Supple Respiratory: Airway patent, Breath sounds clear, Breath sounds equal and Respirations nonlabored Cardiovascular: RRR, Pulses normal, No rub and No murmur GI/: Soft, Nontender, No masses, Bowel sounds normal and No Organomegaly Musculoskeletal: Normal strength, ROM intact, No edema and No calf tenderness Skin: Warm, Dry and Normal color Neurological: Sensation intact, Motor intact, Reflexes intact, Cranial nerves intact, Alert and Oriented Psychiatric: Affect appropriate, Mood appropriate and Anxious (1) Acute pancreatitis: Status: Acute Code(s): K85.90 - Acute pancreatitis without necrosis or infection, unspecified SNOMED Code(s): 152051225 (2) Chronic pancreatitis: Status: Acute Code(s): K86.1 - Other chronic pancreatitis SNOMED Code(s): 033797513 (3) Mixed hypertriglyceridemia: Status: Acute Code(s): E78.2 - Mixed hyperlipidemia SNOMED Code(s): 66987788 Reason for Hospitalization: Acute abdominal pain associated with pancreatitis Prognosis/Condition at Discharge: Fair Medications at Discharge: Ambulatory Orders Medication Instructions Recorded albuterol sulfate 90 mcg/actuation 2 puff INHALATION QID PRN 06/28/20 aerosol inhaler pantoprazole 20 mg tablet,delayed 20 mg PO DAILY 06/28/20 release (Protonix) acetaminophen 500 mg tablet 1,000 mg PO Q8H PRN 11/15/20 (Tylenol Extra Strength) ondansetron HCl 4 mg tablet 4 mg PO Q8H PRN #14 tab 09/20/21 fenofibrate 54 mg tablet 54 mg PO DAILY #30 tab MDD 1 09/25/21 hydrocodone 5 mg-acetaminophen 325 1 tab PO TID PRN #20 tab MDD 2 09/25/21 mg tablet hydroxyzine HCl 25 mg tablet 25 mg PO TID PRN #30 tab 09/25/21 Lab/Diagnostics: See lab Education Provided to Patient and Family: Yes Follow-ups: Establish with PCP Discharge Disposition: Home Hospital Course: Arun Biggs Admit Date September 21, 2021 Discharge date September 25, 2021 Admitting diagnosis; Acute pancreatitis Final diagnosis Acute pancreatitis Hypertriglyceridemia History of chronic alcohol use Condition at the time of discharge, stable and improved Entering statement Is 51 or male patient presented to the emergency room of the day prior to admission complaining of severe of Abdominal pain. Henrietta been experiencing the pain for 24 hours I've been having nausea and vomiting. Denies chronic alcohol use at this time previous history of gallstone pancreatitis with previous cholecystectomy completed. Initial diagnostic lab studies reveal that his triglyceride levels were markedly elevated. Patient was admitted to hospital for IV fluids pain control additional diagnostic investigation and definitive therapy as indicated. Hospital course Diagnostic lab studies reveal that his amylase was elevated to 142 and lipase to 615. His white count was 14.67. He's associated with IV fluids IV Zofran for nausea and vomiting and Protonix. Initially treated with IV Dilaudid PRN for control of his severe pain. Diet was advanced for his tolerance And on September 25, 2019 to the patient continue to remain improve condition and it was decided to discharge from the home for continued outpatient recovery. He was started on zero Phibro 54 mg daily will be sent home with a prescription for [place] or for [place] five 325 to take TID PRN severe pain hydroxyzine 25 mg Tid prn Dietary instructions provided it was instructed to follow with the primary care physician within 1 to 2 weeks it should have difficulty before them to return the emergency room. Triglyceride level,on the day of discharge was 204 and at time admission was 3500 Amylase was 74.3 and lipase 317.7 decreased from 1036. Status of the time discharge stable and improved Plan: discharged stable and improved
== END 2021-09-25 10:30 | disposition home or self-care (01) | DRG 440 ==
LOC: ED 13:47 → MEDSURG A 17:38
PROVIDERS: ADMIT Emergency Medicine; ATTEND Emergency Medicine
DX: J45.909 Unspecified asthma, uncomplicated; K76.0 Fatty (change of) liver, not elsewhere classified; K86.1 Other chronic pancreatitis; F17.210 Nicotine dependence, cigarettes, uncomplicated; Z20.822 Contact with and (suspected) exposure to COVID-19; R07.89 Other chest pain; I10 Essential (primary) hypertension; Z51.81 Encounter for therapeutic drug level monitoring; K85.90 Acute pancreatitis without necrosis or infection, unspecified; K21.9 Gastro-esophageal reflux disease without esophagitis; E78.2 Mixed hyperlipidemia; Z87.898 Personal history of other specified conditions; E78.1 Pure hyperglyceridemia; Z79.899 Other long term (current) drug therapy